=== PATIENT | male | born 1950 | race Caucasian/White ===

== ENCOUNTER 2023-12-10 09:40 | Outpatient (OUT) | payer MEDICARE, OTHER, SELFPAY ==
[2023-12-10 10:04] LABS: Basophils Absolute Auto 0.1 10^3/uL (0.0-0.1); Basophils Percent Auto 0.7 % (0.2-2.0); Eosinophils Absolute Auto 0.4 10^3/uL (0.0-0.7); Eosinophils Percent Auto 5.1 % (0.9-7.0); Hematocrit 38.1 % (42.0-54.0); Hemoglobin 12.7 g/dL (14.0-18.0); Immature Granulocytes Abs Auto 0.04 10^3/uL (0.00-0.03); Immature Granulocytes Pct Auto 0.5 % (0.0-0.5); Lymphocytes Absolute Auto 1.5 10^3/uL (1.2-3.8); Mean Corpuscular HGB Conc 33.3 g/dL (29.9-35.2); Mean Corpuscular Hemoglobin 30.6 pg (25.9-34.0); Mean Corpuscular Volume 91.8 fL (80.0-94.0); Mean Platelet Volume 9.8 fL (9.5-13.5); Monocytes Absolute Auto 0.7 10^3/uL (0.3-0.8); Neutrophils Absolute Auto 4.8 10^3/uL (1.4-6.5); Neutrophils Percent Auto 64.7 % (43.0-75.0); Platelet Count 229 10^3/uL (150-450); Red Blood Count 4.15 10^6/uL (4.70-6.10); White Blood Count 7.5 10^3/uL (4.0-11.0)
[2023-12-10 10:49] LABS: Alanine Aminotransferase 33 U/L (16-63); Albumin Level 3.3 g/dL (3.4-5.0); Alkaline Phosphatase 46 U/L (46-116); Anion Gap 13.7; Aspartate Amino Transferase 22 U/L (15-37); BUN Creatinine Ratio 11.4; Bilirubin Total 0.9 mg/dL (0.2-1.0); Calcium 9.5 mg/dL (8.5-10.1); Carbon Dioxide 30.1 mmol/L (21.0-32.0); Chloride 104 mmol/L (98-107); Estimated GFR (African America >60 (>=60 mL/min/1.73m^2); Estimated GFR (Non-African Ame 53 (>=60 mL/min/1.73m^2); Globulin 3.3 g/dL; Glucose 99 mg/dL (74-106); Potassium 3.8 mmol/L (3.5-5.1); Sodium 144 mmol/L (136-145); Total Protein 6.6 g/dL (6.4-8.2)
[2023-12-10 12:07] LABS: Prostate Specific Antigen Scrn 1.21 ng/mL (<=4.00)
== END 2023-12-10 09:41 | disposition home or self-care (01) ==
PROVIDERS: PCP Family Medicine; Visit Provider Family Medicine
DX: I10 Essential (primary) hypertension (principal); Z12.5 Encounter for screening for malignant neoplasm of prostate
CPT/HCPCS: 36415; 80053; 85025; G0103

== ENCOUNTER 2023-12-24 08:32 | Outpatient (OUT) | payer MEDICARE, SELFPAY ==
--- NOTE | 2023-12-24 08:40 | XR_ITS ---
The [address] [address] Patient Name: DENNY RUIZ MRN: [id number] date: 1950 Sex: M Assigned Patient Location: [facility] Current Patient Location: [facility] Accession/Order Number: [id number] Exam Date: 12/24/2023 08:45 Report Date: 12/24/2023 13:02 At the request of: ALTAF SELLERS Procedure: XR chest 2V PROCEDURE: XR chest 2V DATE: 12/24/2023 8:45 AM EST COMPARISONS: None. CLINICAL INDICATION: 73 years Male Screening FINDINGS: The cardiomediastinal silhouette and pulmonary vasculature are within normal limits. The lungs are clear. There is no evidence of pleural effusion or pneumothorax. There is evidence of mild lead thoracic degenerative spondylosis. There is also some upper thoracic kyphosis. XR/XR chest 2V IMPRESSION: Chest radiograph is essentially within normal limits. Thoracic spondylosis Electronically authenticated by: BELINDA MONTAGUE Date: 12/24/2023 13:02
--- OUTSIDE RECORDS SUMMARY | 2023-12-24 08:49 | XMS_ITS | CCD ---
Author Organization [facility] Care Team Providers Care Director Search Name Role Phone VERITO, DR MODESTO Escobar Attending Unavailable SELLERS, DR MODESTO Escobar Consulting Unavailable SELLERS, DR MODESTO Escobar Primary Care Unavailable SELLERS, DR MODESTO Escobar Admitting Unavailable Sellers, Modesto Davidson Primary Care Provider [phone] Sellers, Modesto Davidson Primary Care Provider [phone] Sellers DO, Modesto Davidson Primary Care Provider Sellers DO, Modesto Davidson Primary Care Provider ELVIRA GARRISON Attending Unavailabl e SELLERS, MODESTO DAVIDSON Primary Care Unavailab ELVIRA Crowell Referring Unavailabl e SELLERS, MODETSO DAVIDSON Primary Care Unavailab CLARISSE Cisse Attending Unavailable LONANCY Referring Unavailable SELLERS, MODESTO DAVIDSON Primary Care Unavailab NANCY Way Attending Unavailable SELLERS, MODESTO DAVIDSON Primary Care Unavailab CLARISSE Cisse Attending Unavailable SELLERS, MODESTO DAVIDSON Primary Care Unavailab le LONANCY Attending Unavailable Medications Current Medications Medication Drug Class(es) Dates Sig (Normalized) Sig (Original) aspirin 81 mg oral tablet (12 sources) Platelet Aggregation Inhibitor, Nonsteroidal Anti-inflammator y Drug Aspirin 81 mg ORAL T ab Take 81 mg by mouth. Active Comment on above: Take 81 mg by mouth. hydroCHLOROthiazide 25 mg oral tablet (12 sources) Thiazide Diuretic take 1 tablet by mouth once daily hydroCHLOROthiazide (HYDRODIURIL, ESIDRIX) 25 mg tablet Take 25 mg by mouth once daily. Active Comment on above: Take 25 mg by mouth once daily. losartan potassium 100 mg oral tablet (12 sources) Angiotensin 2 Receptor John take 1 tablet by mouth once daily losartan (COZAAR) 100 mg tablet Take 100 mg by mouth once daily. Active Comment on above: Take 100 mg by mouth once daily. multivitamin ORAL tablet (12 sources) take 1 tablet by mouth once daily multivitamin ORAL tablet Take 1 tablet by mouth once daily. Active take 1 tablet by mouth once taurus y multivitamin ORAL tablet Take 1 tablet by mouth once daily. 0 Active Comment on above: Take 1 tablet by jerzy th once daily. pantoprazole 40 mg delayed release oral tablet (12 sources) Proton Pump Inhibitor take 1 tablet by mouth once daily pantoprazole DR (PROTONIX) 40 mg tablet Take 40 mg by mouth once daily. Active Comment on above: Take 40 mg by mouth once daily. psyllium seed, with dextrose, (FIBER ORAL) (12 sources) psyllium seed, w ith dextrose, (FIBER ORAL) Take by mouth once daily. Active psyllium seed, w ith dextrose, (FIBER ORAL) Take by mouth once daily. 0 Active Comment on above: Take by mouth once d aily. simvastatin 40 mg oral tablet (12 sources) HMG-CoA Reductase Inhibitor take 1 tablet by mouth once daily at bedtime simvastatin (ZOCOR) 40 mg tablet Take 40 mg by mouth daily at bedtime. Active Comment on above: Take 40 mg by mouth daily at bedtime. ubiquinol 200 mg oral capsule (12 sources) take 200 mg by mouth once daily COQ10, UBIQUINOL, ORAL Take 200 mg by mouth once daily. Active Comment on above: Take 200 mg by mouth once daily. Completed/Discontinued Medications Medication Drug Class(es) Dates Sig (Normalized) Sig (Original) Carboxymethylcellulose (1 source) End: 01-05-20 CARBOXYMETHYLCELLULOSE SODIUM (RESTORE TEARS OPHTHALMIC) Use in eyes once daily. 01/04/2021 Discontinued (Course of therapy completed) 10 ml lidocaine hydrochloride 10 mg/ml injection (7 sources) Antiarrhythmi c, Amide Local Anesthetic Start: 09-18-19 End: 09-18-19 24 lidocaine (PF) 10 mg/mL (1 %) 4 mL injection (XYLOCAINE) Start: 06-08-2023 End: 06-08-2023 lidocaine (PF) 10 mg/mL (1 % ) 4 mL injection (XYLOCAINE) Start: 09-05-2022 End: 09-05-2022 lidocaine (PF) 10 mg/mL (1 % ) 4 mL injection (XYLOCAINE) Start: 01-24-2022 End: 01-24-2022 lidocaine (PF) 10 mg/mL (1 % ) 4 mL injection (XYLOCAINE) Start: 08-02-2021 End: 08-02-2021 lidocaine (PF) 10 mg/mL (1 % ) 4 mL injection (XYLOCAINE) Meperidine (2 sources) Opioid Agonist Start: 08-16-2023 End: 08-16-2023 meperidine (PF) injection (D EMEROL) Start: 08-16-2023 End: 08-16-2023 meperidine (PF) injection (D EMEROL) 5 ml midazolam 1 mg/ml injection (1 source) Benzodiazepine Start: 08-16-2023 End: 08-16-2023 midazolam (PF) injection (VERSED) 2 ml ondansetron 2 mg/ml injection (1 source) Serotonin-3 Receptor Antagonist Start: 08-16-2023 End: 08-16-2023 ondansetron (PF) injection (ZOFRAN) 1 ml triamcinolone acetonide 40 mg/ml injection (7 sources) Corticosteroid Start: 09-18-2023 End: 09-18-2023 triamcinolone acetonide 40 mg injection (KeNALog 40) Start: 06-08-2023 End: 06-08-2023 triamcinolone acetonide 40 m g injection (KeNALog 40) Start: 09-05-2022 End: 09-05-2022 triamcinolone acetonide 40 m g injection (KeNALog 40) Start: 01-24-2022 End: 01-24-2022 triamcinolone acetonide 40 m g injection (KeNALog 40) Start: 08-02-2021 End: 08-02-2021 triamcinolone acetonide 40 m g injection (KeNALog 40) ubidecarenone / vitamin E (1 source) End: 01-04-2021 Coenzyme [id number] E (COQ1 0 SG 100) 100-100 mg-unit ORAL Cap Take by mouth. 01/04/2021 Discontinued (Patient chooses alternative therapy) Problems Active Problems Problem Classification Problem Date Documented Da te Episodic/Chronic Disorders of lipid metabolism (1 source) Mixed hyperlipidemia; Translations: [MIXED HYPERLIPIDEMIA] Onset: 11-16-2020 Chronic Esophageal disorders (13 sources) Stricture of esophagus; Translations: [Esophageal obstruction] Onset: 03-10-2010 03-10-2010 Chronic Hypertension with complications and secondary hypertension (4 sources) Hypertensive chronic kidney disease with stage 1 through stage 4 chronic kidney disease, or unspecified chronic kidney disease; Translations: [HTN CKD W/STAGE 1-4 CKD/UNS CKD] Onset: 11-11-2020 Chronic Other gastrointestinal disorders (2 sources) Dysphagia; Translations: [Other dysphagia] Episodic Other gastrointestinal disorders (2 sources) Esophageal dysphagia; Translations: [Other dysphagia] 05-22-2023 Episodic Other gastrointestinal disorders (1 source) Other dysphagia; Translations: [Esophageal dysphagia] Onset: 08-16-2023 Episodic Other non-traumatic joint disorders (1 source) Other specific arthropathies, not elsewhere classified, right shoulder; Translations: [Rotator cuff tear arthropathy of right shoulder] Onset: 07-13-2020 Chronic Other screening for suspected conditions (not mental disorders or infectious disease) (2 sources) Encounter for screening, unspecified; Translations: [Encounter for screening for malignant neoplasm of prostate] Onset: 11-16-2020 Episodic Residual codes; unclassified (2 sources) Pain; Translations: [Pain, unspecified] 08-02-2021 Episodic Unclassified (1 source) CHRN KIDNEY DISEASE STG 3 UNSP; Translations: [CHRN KIDNEY DISEASE STG 3 UNSP] Onset: 11-16-2020 Past or Other Problems Problem Classification Problem Date Documented Da te Episodic/Chronic Other connective tissue disease (17 sources) Rotator cuff arthropathy of right shoulder; Translations: [Unspecified rotator cuff tear or rupture of right shoulder, not specified as traumatic] Onset: 07-13-2020 Episodic Other connective tissue disease (1 source) Unspecified rotator cuff tear or rupture of right shoulder, not specified as traumatic; Translations: [Rotator cuff tear arthropathy of right shoulder] Onset: 07-13-2020 Episodic Sprains and strains (12 sources) Sprain of shoulder rotator cuff; Translations: [Sprain of unspecified rotator cuff capsule, initial encounter] Onset: 05-28-2012 05-28-2012 Episodic Results Test Name Value Interpretation Reference Range Facility OV 09-18-2023 CNOV Office Visit (SPRTST ) CHASITY RUIZ ([id number]) 1950 M Date Time Provider Department 09/18/23 8:50 AM CLARISSE FORTUNE During your visit today, we recorded the following information about you: Clarisse Fortune PA-C 09/18/2023 8:54 AM Signed FOLLOW UP APPOINTMENT Chief Complaint:/Reason for Visit: Established patient; Scheduled follow up appointment for new or existing problem and/or post-surgical evaluation History of Present Illness: Chasity Ruiz follows up today for his right shoulder. He is here for repeat right shoulder injection. Continues to get moderate relief. ROS: Constitutional: patient denies any recent fever or significant change in weight Cardiovascular: patient denies any chest pain at rest Respiratory: patient denies any shortness of breath or cough Gastrointestinal: patient denies any current abdominal discomfort Integumentary: patient denies any recent skin changes Musculoskeletal: as noted in the HPI Neurologic: as noted in the HPI Endocrine: patient denies a current diagnosis of diabetes Hematologic/Lymphatic: patient denies any easily bleeding, any recent infection and denies any recent observable lymph node enlargement Psychologic: negative for any recent depression or anxiety issues PAST MEDICAL HISTORY No date: Hypertension No date: Tuberculosis Current Outpatient Medications: psyllium seed, with dextrose, (FIBER ORAL) hydroCHLOROthiazide (HYDRODIURIL, ESIDRIX) [address] (PROTONIX) 40 mg tablet simvastatin (ZOCOR) 40 mg tablet COQ10, UBIQUINOL, ORAL losartan (COZAAR) 100 mg tablet multivitamin ORAL tablet Aspirin 81 mg ORAL Tab Problem List: reviewed and updated. Physical Exam: Constitutional: No acute distress, pleasant Resp: Non-labored breathing Vascular: No cyanosis Skin: No rashes noted Focused Musculoskeletal exam: General: Ambulates well; no other joint abnormalities noted. Motor: 5/5 IO, FPL, OP, hand change release manager, biceps, triceps, deltoid Sensory: SILT ulnar/median/radial distributions bilat (C1-T1 intact) ROM: intact in all joints. Pulses: 2+ radial, ulnar; hands warm bilat, <2sec CR Compartments: soft and compressible Assessment: (M75.101, M12.811) Rotator cuff tear arthropathy of right shoulder (primary encounter diagnosis) Plan/Medical Decision Making:The nature of the problem and all indicated treatment options available were discussed in detail with the patient. Test(s)/Imaging/Referra l(s): None 2. Intervention: Continue conservative treatment and CSI 3. Follow-up: as needed All of Chasity Ruiz questions were answered today. He expressed a clear understanding of our discussion and is in agreement with the outlined treatment plan Clarisse Fortune PA-C Large Joint Arthro/Inj: R subacromial bursa Informed Consent Consent Obtained: Verbal [place] Protocol A moment to CARE was completed. SIGN IN Sign in communication not applicable due to emergent procedure. Personnel directly involved with the procedure wore the appropriate PPE. Special Equipment: N/A Patient/Surrogate Stated/Verified: Patient name, Date of , Relevant allergies and Intended procedure TIME OUT Intended patient and procedure match the source document(s). Consent documented and matches the intended procedure. Relevant labs, photos, and/or imaging studies have been reviewed. Correct side/site marked and visible. Medications required for procedure verified. No fire risk assessment and interventions applicable. No implant(s) inserted. 09/18/2023 8:54 AM The procedure site was prepped in the usual sterile fashion. Site: R subacromial bursa Medications: 40 mg triamcinolone acetonide 40 mg/mL Anesthetics: 4 mL lidocaine (PF) 10 mg/mL (1 %) Outcome: Tolerated well, no immediate complications Post-injection instructions were reviewed with the patient and the patient voiced understanding of these instructions. SIGN OUT All instruments, equipment, possible retained foreign bodies accounted for. Referring Provider: ELVIRA GARRISON [[id number]] Allergies As of Date: 09/18/2023 (No Known Allergies) Date Reviewed: 09/18/2023 Reviewed by: Emily Lama MA - Fully Assessed Reason for Visit: Established Patient [175] Primary Visit Diagnosis:Rotator cuff tear arthropathy of right shoulder [M75.101, M12.811] Order(s):Large Joint Arthro/Inj: R subacromial bursa [KNH641] Order #: [id number] [] lidocaine (PF) 10 mg/mL (1 %) 4 mL injection (XYLOCAINE)Disp: Rfl: [] triamcinolone acetonide 40 mg injection (KeNALog 40)Disp: Rfl: Prescriptions as of 09/18/2023 - psyllium seed, with dextrose, (FIBER ORAL) Take by mouth once daily. - hydroCHLOROthiazide (HYDRODIURIL, ESIDRIX) 25 mg tablet Take 25 mg by mouth once daily. - pantoprazole DR (PROTONIX) 40 mg tablet Take 40 mg by mout (more content not included)... Normal [facility] Large Joint Arthro/Inj: R honeycutt bacromial bursaon 09-18-2023 Clarisse Fortune P A-C 09/18/2023 8:54 AM Large Joint Arthro/Inj: R subacromial bursa Informed Consent Consent Obtained: Verbal [place] Protocol A moment to CARE was completed. SIGN IN Sign in communication not applicable due to emergent procedure. Personnel directly involved with the procedure wore the appropriate PPE. Special Equipment: N/A Patient/Surrogate Stated/Verified: Patient name, Date of , Relevant allergies and Intended procedure TIME OUT Intended patient and procedure match the source document(s). Consent documented and matches the intended procedure. Relevant labs, photos, and/or imaging studies have been reviewed. Correct side/site marked and visible. Medications required for procedure verified. No fire risk assessment and interventions applicable. No implant(s) inserted. 09/18/2023 8:54 AM The procedure site was prepped in the usual sterile fashion. Site: R subacromial bursa Medications: 40 mg triamcinolone acetonide 40 mg/mL Anesthetics: 4 mL lidocaine (PF) 10 mg/mL (1 %) Outcome: Tolerated well, no immediate complications Post-injection instructions were reviewed with the patient and the patient voiced understanding of these instructions. SIGN OUT All instruments, equipment, possible retained foreign bodies accounted for. [facility] EGD Study observation Heber mariano 08-16-2023 A31 Gastrointestinal Endoscopy Patient Name: Chasity Ruiz Procedure Date: 08/16/2023 4:08 PM Date of : 1950 Admit Type: Outpatient Age: 73 Room: A3 PROC 5 Gender: Male Note Status: Finalized Attending MD: Nancy Maldonado MD, [id number] Procedure: Upper GI endoscopy Indications: Dysphagia Providers: Nancy Maldonado MD Referring Physician: Nancy Maldonado MD (Referring MD) Medicines: Meperidine 75 mg IV, Midazolam 4 mg IV, Benzocaine spray Complications: No immediate complications. Requesting Provider: Procedure: Pre-Anesthesia Assessment: - ASA Grade Assessment: II - A patient with mild systemic disease. After obtaining informed consent, the endoscope was passed under direct vision. Throughout the procedure, the patient's blood pressure, pulse, and oxygen saturations were monitored continuously. The Endoscope was introduced through the mouth, and advanced to the second part of duodenum. The upper GI endoscopy was accomplished without difficulty. The patient tolerated the procedure well. Moderate Sedation: The administration of moderate sedation was initiated at 16:29 PM. Moderate (conscious) sedation was administered by the nurse and supervised by the endoscopist. The patient's oxygen saturation, heart rate, blood pressure and response to care were monitored. Findings: One benign-appearing, intrinsic severe (stenosis; an endoscope cannot pass) stenosis was found 39 cm from the incisors. This stenosis measured 8 mm (inner diameter) x less than one cm (in length). The stenosis was traversed after dilation. A TTS dilator was passed through the scope. Dilation with a 12-13.5-15 mm x 5.5 cm CRE balloon dilator was performed to 15 mm. The dilation site was examined following endoscope reinsertion and showed moderate mucosal disruption, moderate improvement in luminal narrowing and no perforation. The entire examined stomach was normal. The in the duodenum was normal. Impression: - Benign-appearing esophageal stenosis. Dilated. - Normal stomach. - Normal. - No specimens collected. Estimated Blood Loss: Estimated blood loss: none. Recommendation: - Discharge patient to home. Procedure Code(s): --- Professional --- 91364, Esophagogastroduodenosc opy, flexible, transoral; with transendoscopic balloon dilation of esophagus (less than 30 mm diameter) CPT copyright 2020 [employer]. All rights reserved. The codes documented in this report are preliminary and upon movement assembly final inspector review may be revised to meet current compliance requirements. Attending Participation: I personally performed the entire procedure. I was present and participated during the entire procedure, including non-marte portions, and during the administration and monitoring of Moderate Sedation. Scope In: 4:33:12 PM Scope Out: 4:39:24 PM MD Nancy Avalos MD 08/16/2023 4:43:57 PM This report has been signed electronically by Nancy Maldonado MD Number of Addenda: 0 Note Initiated On: 08/16/2023 4:08 PM [facility] Radiology Study observation (narrative) [facility] NURSING PROGon 08-16-2023 NURSING PROG HNO ID: [id number] Author: SAMMI VERMA RN Service: ? Author Type: Registered Nurse Type: Nursing Progress Note Filed: 08/16/2023 16:48 Note Text: AMBULATORY PATIENT EDUCATION NOTE TOPIC: GI PROCEDURES: Esophagogastroduodenosc opy(EGD) for control of bleeding,dilation(any means),imaging,tube placement READINESS TO LEARN INSTRUCTION PROVIDED TO: Patient, readness to learn accessed prior to procedure and Family member COGNITIVE ABILITY: Alert and oriented PTED MOTIVATION TO LEARN: Interested FAMILY SUPPORT: High - Very involved in pt care IPATIENT LEARNS BEST BY: Individual Instruction Written Instruction - Hand-outs Verbal Instruction FACTORS AFFECTING LEARNING: None PHYSICAL LIMITATIONS AFFECTING LEARNING: None LEARNING RESPONSE METHOD OF INSTRUCTION: Individual instruction PATIENT / FAMILY RESPONSE: Verbalizes understanding of: WORSENING CONDITION-Signs and symptoms of a worsening condition that warrant a call to the physician FOLLOW-UP PLAN: Patient instructed to call with any further issues Recommend - Recommend continued instruction and follow up as directed Contact information given. SUPPLEMENTAL MATERIAL: Procedure Discharge Instructions REFERRAL (RECOMMENDATION): None Electronically Signed By: Sammi Verma RN Normal [facility] NURSING PROG HNO ID: [id number] Author: DARLEEN HEREDIA RN Service: ? Author Type: Registered Nurse Type: Nursing Progress Note Filed: 08/16/2023 16:11 Note Text: PRE OP LEARNING ASSESSMENT PROCEDURE/SURGERY: GI PROCEDURES: EGD READINESS TO LEARN COGNITIVE ABILITY: Alert and oriented MOTIVATION TO LEARN: Interested FAMILY SUPPORT: Unable to assess - Family not present PATIENT LEARNS BEST BY: Individual Instruction FACTORS AFFECTING LEARNING: None PHYSICAL LIMITATIONS AFFECTING LEARNING: None Electronically Signed By: Darleen Heredia RN In Department: GASTROENTEROLOGY Normal [facility] Upper GI endoscopyon 024 Upper GI endoscopy A31 Gastrointestinal Endoscopy Patient Name: Chasity Ruiz Procedure Date: 08/16/2023 4:08 PM Date of : 1950 Admit Type: Outpatient Age: 73 Room: [place] [address] Gender: Male Note Status: Finalized Attending MD: Nancy Maldonado MD, [id number] Procedure: Upper GI endoscopy Indications: Dysphagia Providers: Nancy Maldonado MD Referring Physician: Nancy Maldonado MD (Referring MD) Medicines: Meperidine 75 mg IV, Midazolam 4 mg IV, Benzocaine spray Complications: No immediate complications. Requesting Provider: Procedure: Pre-Anesthesia Assessment: - ASA Grade Assessment: II - A patient with mild systemic disease. After obtaining informed consent, the endoscope was passed under direct vision. Throughout the procedure, the patient's blood pressure, pulse, and oxygen saturations were monitored continuously. The Endoscope was introduced through the mouth, and advanced to the second part of duodenum. The upper GI endoscopy was accomplished without difficulty. The patient tolerated the procedure well. Moderate Sedation: The administration of moderate sedation was initiated at 16:29 PM. Moderate (conscious) sedation was administered by the nurse and supervised by the endoscopist. The patient's oxygen saturation, heart rate, blood pressure and response to care were monitored. Findings: One benign-appearing, intrinsic severe (stenosis; an endoscope cannot pass) stenosis was found 39 cm from the incisors. This stenosis measured 8 mm (inner diameter) x less than one cm (in length). The stenosis was traversed after dilation. A TTS dilator was passed through the scope. Dilation with a 12-13.5-15 mm x 5.5 cm CRE balloon dilator was performed to 15 mm. The dilation site was examined following endoscope reinsertion and showed moderate mucosal disruption, moderate improvement in luminal narrowing and no perforation. The entire examined stomach was normal. The in the duodenum was normal. Impression: - Benign-appearing esophageal stenosis. Dilated. - Normal stomach. - Normal. - No specimens collected. Estimated Blood Loss: Estimated blood loss: none. Recommendation: - Discharge patient to home. Procedure Code(s): --- Professional --- 35248, Esophagogastroduodenosc opy, flexible, transoral; with transendoscopic balloon dilation of esophagus (less than 30 mm diameter) CPT copyright 2020 [employer]. All rights reserved. The codes documented in this report are preliminary and upon movement assembly final inspector review may be revised to meet current compliance requirements. Attending Participation: I personally performed the entire procedure. I was present and participated during the entire procedure, including non-marte portions, and during the administration and monitoring of Moderate Sedation. Scope In: 4:33:12 PM Scope Out: 4:39:24 PM MD Nancy Avalos MD 08/16/2023 4:43:57 PM This report has been signed electronically by Nancy Maldonado MD Number of Addenda: 0 Note Initiated On: 08/16/2023 4:08 PM Normal [facility] CNOVon 06-08-2023 CNOV Office Visit (SPRTST ) CHASITY RUIZ ([id number]) 1950 M Date Time Provider Department 06/08/23 9:10 AM CLARISSE FORTUNE During your visit today, we recorded the following information about you: Clarisse Fortune PA-C 06/08/2023 9:05 AM Signed FOLLOW UP APPOINTMENT Chief Complaint:/Reason for Visit: Established patient; Scheduled follow up appointment for new or existing problem and/or post-surgical evaluation History of Present Illness: Chasity Ruiz follows up today for his right shoulder. He is here for repeat cortisone injection. Last injection lasted about 4 months. ROS: Constitutional: patient denies any recent fever or significant change in weight Cardiovascular: patient denies any chest pain at rest Respiratory: patient denies any shortness of breath or cough Gastrointestinal: patient denies any current abdominal discomfort Integumentary: patient denies any recent skin changes Musculoskeletal: as noted in the HPI Neurologic: as noted in the HPI Endocrine: patient denies a current diagnosis of diabetes Hematologic/Lymphatic: patient denies any easily bleeding, any recent infection and denies any recent observable lymph node enlargement Psychologic: negative for any recent depression or anxiety issues PAST MEDICAL HISTORY Diagnosis Date Hypertension Tuberculosis Current Outpatient Medications: psyllium seed, with dextrose, (FIBER ORAL) hydroCHLOROthiazide (HYDRODIURIL, ESIDRIX) [address] (PROTONIX) 40 mg tablet simvastatin (ZOCOR) 40 mg tablet COQ10, UBIQUINOL, ORAL losartan (COZAAR) 100 mg tablet multivitamin ORAL tablet Aspirin 81 mg ORAL Tab Problem List: reviewed and updated. Physical Exam: Constitutional: No acute distress, pleasant Resp: Non-labored breathing Vascular: No cyanosis Skin: No rashes noted Focused Musculoskeletal exam: General: Ambulates well; no other joint abnormalities noted. Motor: 5/5 IO, FPL, OP, hand change release manager, biceps, triceps, deltoid Sensory: SILT ulnar/median/radial distributions bilat (C1-T1 intact) ROM: intact in all joints. Pulses: 2+ radial, ulnar; hands warm bilat, <2sec CR Compartments: soft and compressible Assessment: (M75.101, M12.811) Rotator cuff tear arthropathy of right shoulder (primary encounter diagnosis) Plan/Medical Decision Making:The nature of the problem and all indicated treatment options available were discussed in detail with the patient. Test(s)/Imaging/Referra l(s): None 2. Intervention: Continue conservative treatment and CSI 3. Follow-up: as needed All of Chasity Ruiz questions were answered today. He expressed a clear understanding of our discussion and is in agreement with the outlined treatment plan Clarisse Fortune PA-C Large Joint Arthro/Inj: R subacromial bursa Informed Consent Consent Obtained: Verbal [place] Protocol A moment to CARE was completed. SIGN IN Sign in communication not applicable due to emergent procedure. Personnel directly involved with the procedure wore the appropriate PPE. Special Equipment: N/A Patient/Surrogate Stated/Verified: Patient name, Date of , Relevant allergies and Intended procedure TIME OUT Intended patient and procedure match the source document(s). Consent documented and matches the intended procedure. Relevant labs, photos, and/or imaging studies have been reviewed. Correct side/site marked and visible. Medications required for procedure verified. No fire risk assessment and interventions applicable. No implant(s) inserted. 06/08/2023 8:58 AM The procedure site was prepped in the usual sterile fashion. Site: R subacromial bursa Medications: 40 mg triamcinolone acetonide 40 mg/mL Anesthetics: 4 mL lidocaine (PF) 10 mg/mL (1 %) Outcome: Tolerated well, no immediate complications Post-injection instructions were reviewed with the patient and the patient voiced understanding of these instructions. SIGN OUT All instruments, equipment, possible retained foreign bodies accounted for. Allergies As of Date: 06/08/2023 (Not on File) Date Reviewed: 06/08/2023 Reviewed by: Lluvia Salazar RN - Fully Assessed Reason for Visit: Established Patient [175] Pain [78] Primary Visit Diagnosis:Rotator cuff tear arthropathy of right shoulder [M75.101, M12.811] Order(s):Large Joint Arthro/Inj: R subacromial bursa [JBY552] Order #: [id number] [] lidocaine (PF) 10 mg/mL (1 %) 4 mL injection (XYLOCAINE)Disp: Rfl: [] triamcinolone acetonide 40 mg injection (KeNALog 40)Disp: Rfl: Prescriptions as of 06/08/2023 - psyllium seed, with dextrose, (FIBER ORAL) Take by mouth once daily. - hydroCHLOROthiazide (HYDRODIURIL, ESIDRIX) 25 mg tablet Take 25 mg by mouth once daily. - pantoprazole DR (PROTONIX) 40 mg tablet Take 40 mg by mouth once daily. - simvastatin (ZOCOR) 40 mg tablet (more content not included)... Normal [facility] Large Joint Arthro/Inj: R honeycutt bacromial bursaon 06-08-2023 Clarisse Fortune P A-C 06/08/2023 9:05 AM Large Joint Arthro/Inj: R subacromial bursa Informed Consent Consent Obtained: Verbal [place] Protocol A moment to CARE was completed. SIGN IN Sign in communication not applicable due to emergent procedure. Personnel directly involved with the procedure wore the appropriate PPE. Special Equipment: N/A Patient/Surrogate Stated/Verified: Patient name, Date of , Relevant allergies and Intended procedure TIME OUT Intended patient and procedure match the source document(s). Consent documented and matches the intended procedure. Relevant labs, photos, and/or imaging studies have been reviewed. Correct side/site marked and visible. Medications required for procedure verified. No fire risk assessment and interventions applicable. No implant(s) inserted. 06/08/2023 8:58 AM The procedure site was prepped in the usual sterile fashion. Site: R subacromial bursa Medications: 40 mg triamcinolone acetonide 40 mg/mL Anesthetics: 4 mL lidocaine (PF) 10 mg/mL (1 %) Outcome: Tolerated well, no immediate complications Post-injection instructions were reviewed with the patient and the patient voiced understanding of these instructions. SIGN OUT All instruments, equipment, possible retained foreign bodies accounted for. [facility] CNOVon 02-13-2023 CNOV Office Visit (SPRTST ) CHASITY RUIZ ([id number]) 1950 M Date Time Provider Department 02/13/23 9:00 AM ELVIRA GARRISON SPRTST During your visit today, we recorded the following information about you: Tomy Perez MD 02/13/2023 9:49 AM Signed FOLLOW UP APPOINTMENT Chief Complaint:/Reason for Visit: Established patient; Scheduled follow up appointment for new or existing problem and/or post-surgical evaluation History of Present Illness: Chasity Ruiz follows up today for his right shoulder. Last injection was in September. Has been getting injections and gets about 4 months of relief. 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 ROS: Constitutional: patient denies any recent fever or significant change in weight Cardiovascular: patient denies any chest pain at rest Respiratory: patient denies any shortness of breath or cough Gastrointestinal: patient denies any current abdominal discomfort Integumentary: patient denies any recent skin changes Musculoskeletal: as noted in the HPI Neurologic: as noted in the HPI Endocrine: patient denies a current diagnosis of diabetes Hematologic/Lymphatic: patient denies any easily bleeding, any recent infection and denies any recent observable lymph node enlargement Psychologic: negative for any recent depression or anxiety issues PAST MEDICAL HISTORY Diagnosis Date Hypertension Tuberculosis Current Outpatient Medications: psyllium seed, with dextrose, (FIBER ORAL) hydroCHLOROthiazide (HYDRODIURIL, ESIDRIX) [address] (PROTONIX) 40 mg tablet simvastatin (ZOCOR) 40 mg tablet COQ10, UBIQUINOL, ORAL losartan (COZAAR) 100 mg tablet multivitamin ORAL tablet Aspirin 81 mg ORAL Tab Problem List: reviewed and updated. Physical Exam: Constitutional: No acute distress, pleasant Resp: Non-labored breathing Vascular: No cyanosis Skin: No rashes noted Focused Musculoskeletal exam: General: Ambulates well; no other joint abnormalities noted. Motor: 5/5 IO, FPL, OP, hand change release manager, biceps, triceps, deltoid Sensory: SILT ulnar/median/radial distributions bilat (C1-T1 intact) ROM: intact in all joints. Pulses: 2+ radial, ulnar; hands warm bilat, <2sec CR Compartments: soft and compressible He maintains functional motion and strength of the shoulders Assessment: No diagnosis found. Plan/Medical Decision Making:The nature of the problem and all indicated treatment options available were discussed in detail with the patient. Test(s)/Imaging/Referra l(s): None 2. Intervention: CSI today 3. Follow-up: As needed for injection Large Joint Arthro/Inj: R subacromial bursa Informed Consent Consent Obtained: Verbal [place] Protocol SIGN IN TIME OUT 02/13/2023 9:19 AM The procedure site was prepped in the usual sterile fashion. Site: R subacromial bursa Medications: 40 mg triamcinolone acetonide 40 mg/mL Anesthetics: 4 mL lidocaine (PF) 10 mg/mL (1 %) Outcome: Tolerated well, no immediate complications Post-injection instructions were reviewed with the patient and the patient voiced understanding of these instructions. All of Chasity Ruiz questions were answered today. He expressed a clear understanding of our discussion and is in agreement with the outlined treatment plan Elvira Garrison MD CC: Elvira Garrison MD 02/13/2023 9:49 AM Signed Assessment/Primary Diagnosis: (M75.101, M12.811) Rotator cuff tear arthropathy of right shoulder (primary encounter diagnosis) Fellow/resident history and physical examination reviewed and confirmed by the attending physician. The attending physician obtained additional history and performed focused physical examination. All imaging and laboratory studies were reviewed by the attending physician with fellow/resident and the patient. Treatment care plan discussed with the fellow/resident and completely explained to the patient. The attending physician was present for and supervised any injections. All of the patient's questions were answered by the attending physician. Referring Provider: SELF [200] Allergies As of Date: 02/13/2023 (Not on File) Date Reviewed: 02/13/2023 Reviewed by: Lluvia Salazar RN - Fully Assessed Reason for Visit: Injections [199] Pain [78] Established Patient [175] Primary Visit Diagnosis:Rotator cuff tear arthropathy of right shoulder [M75.101, M12.811] Order(s):Large Joint Arthro/Inj: R subacromial bursa [OXY129] Order #: [id number] [] lidocaine (PF) 10 mg/mL (1 %) 4 mL injection (XYLOCAINE)Disp: Rfl: [] triamcinolone acetonide 40 mg injection (KeNALog 40)Disp: Rfl: Prescriptions as of 02/13/2023 - psyllium seed, with dextrose, (FIBER ORAL) Take by mouth once daily. - hydroCHLOROthiazide (HYDRODIURIL, ESIDRIX) 25 mg tablet Take 25 mg by mouth once da (more content not included)... Normal [facility] EGD - THERAPEUTIC, EUS, OR T UBE INTERVENTIONSon 03-09-2022 [facility] XR Shoulder - right 3 Viewso n 08-02-2021 IMPRESSION: Postoperative and degenerative changes of the right shoulder, similar to prior. Suspicion of rotator cuff tear. Thoracic spine marked degenerative changes and mild dextroscoliosis. Supervisor [employer]: [employer] Transcribe Date/Time: Aug 02 2021 9:32A Dictated by : PHILLIP MACHUCA MD This examination was interpreted and the report reviewed and electronically signed by: PHILLIP MACHUCA MD on Aug 02 2021 9:35AM EST [facility]_DO_NOT_US E_DIVISION OF RADIOLOGY * * *Final Report* * * DATE OF EXAM: Aug 02 2021 9:06AM STX 5253 - XR SHLDR >/=3V AP/JOSE G AP/OTHR RT / PROCEDURE REASON: Pain * * * * Physician Interpretation * * * * HISTORY: Pain . RIGHT SHOULDER PAIN, NO KNOWN INJURY TECHNIQUE: XR SHLDR >/=3V AP/JOSE G AP/OTHR RT Laterality: RIGHT Number of different views (projections): 3 COMPARISON: 07/13/2020 RESULT: Again seen are postoperative changes with two metallic suture anchors overlying the greater tuberosity of the humerus. Mild glenohumeral joint space narrowing and osteophytes, similar to prior. Narrowing of the acromiohumeral interval suspicious for rotator cuff tear. Widening of the acromioclavicular joint space probably related to postoperative changes of distal clavicular resection. Small osteophytes about the acromium and distal clavicle. Ovoid ossifications measuring up to 1.6 cm overlying the proximal humerus suspicious for loose bodies some of which may be within the biceps tendon sheath. Soft tissues about the right shoulder otherwise unremarkable. Mild thoracic scoliosis convex to the right, and marked multilevel thoracic spine degenerative changes. [facility]_NOT_US E_DIVISION OF RADIOLOGY Provider, [facility] - 08/02/2021 * * *Final Report* * * DATE OF EXAM: Aug 02 2021 9:06AM STX 5253 - XR SHLDR >/=3V AP/JOSE G AP/OTHR RT / PROCEDURE REASON: Pain * * * * Physician Interpretation * * * * HISTORY: Pain . RIGHT SHOULDER PAIN, NO KNOWN INJURY TECHNIQUE: XR SHLDR >/=3V AP/JOSE G AP/OTHR RT Laterality: RIGHT Number of different views (projections): 3 COMPARISON: 07/13/2020 RESULT: Again seen are postoperative changes with two metallic suture anchors overlying the greater tuberosity of the humerus. Mild glenohumeral joint space narrowing and osteophytes, similar to prior. Narrowing of the acromiohumeral interval suspicious for rotator cuff tear. Widening of the acromioclavicular joint space probably related to postoperative changes of distal clavicular resection. Small osteophytes about the acromium and distal clavicle. Ovoid ossifications measuring up to 1.6 cm overlying the proximal humerus suspicious for loose bodies some of which may be within the biceps tendon sheath. Soft tissues about the right shoulder otherwise unremarkable. Mild thoracic scoliosis convex to the right, and marked multilevel thoracic spine degenerative changes. IMPRESSION IMPRESSION: Postoperative and degenerative changes of the right shoulder, similar to prior. Suspicion of rotator cuff tear. Thoracic spine marked degenerative changes and mild dextroscoliosis. Supervisor [employer]: [employer] Transcribe Date/Time: Aug 02 2021 9:32A Dictated by : PHILLIP MACHUCA MD This examination was interpreted and the report reviewed and electronically signed by: PHILLIP MACHUCA MD on Aug 02 2021 9:35AM EST [facility] Radiology Study observation (narrative) [facility] XR Shoulder - right 3 ViewsO rdered By: Ccf Provider on 08-02-2021 [facility] CBC AUTO DIFFon 11-11-2020 BASO # 0.1 103/ul Normal 0.0-0.1 [facility] Comment on above: Performed By: #### C BC #### [facility] [address] [place] [address] Dr. Brett Shea Basophils/100 WBC (Bld) 0.9 % Normal 0.2-2.0 [facility] Comment on above: Performed By: #### C BC #### [facility] [address] [place] [address] Dr. Brett Shea EO # 0.3 103/ul Normal 0.0-0.[address] [facility] Comment on above: Performed By: #### C BC #### [facility] [address] [place] [address] Dr. Brett Shea Eosinophils/100 WBC (Bld) 4.6 % Normal 0.9-7.[address] [facility] Comment on above: Performed By: #### C BC #### [facility] [address] [place] [address] Dr. Brett Shea Erythrocyte distribution width (RBC) [Ratio] 12.4 % Normal 11.0-15.0 [facility] Comment on above: Performed By: #### C BC #### [facility] [address] [place] [address] Dr. Brett Shea Hematocrit (Bld) [Volume fraction] 39.2 % Critically low 42.0-54.0 [facility] Comment on above: Performed By: #### C BC #### [facility] [address] [place] [address] Dr. Brett Shea Hemoglobin (Bld) [Mass/Vol] 12.8 g/dL Critically low 14.0-18.0 [facility] Comment on above: Performed By: #### C BC #### [facility] [address] [place] [address] Dr. Brett Shea IG # 0.02 10e3/ul Normal 0.00-0.03 [facility] Comment on above: Performed By: #### C BC #### [facility] [address] [place] [address] Dr. Brett Shea IG % 0.3 % Normal 0.0-0.5 [facility] Comment on above: Performed By: #### C BC #### [facility] [address] [place] [address] Dr. Bertt Shea LYMPH # 1.7 103/ul Normal 1.2-3.8 [facility] Comment on above: Performed By: #### C BC #### [facility] [address] [place] [address] Dr. Brett Shea Lymphocytes/100 WBC (Bld) 22.1 % Normal 20.5-60.0 [facility] Comment on above: Performed By: #### C BC #### [facility] [address] [place] [address] Dr. Brett Shea MANUAL DIFF REQ NO Normal [facility] Comment on above: Performed By: #### C BC #### [facility] [address] [place] [address] Dr. Brett Shea MCH (RBC) [Entitic mass] 29.8 pg Normal 25.9-34.0 [facility] Comment on above: Performed By: #### C BC #### [facility] [address] [place] [address] Dr. Brett Shea MCHC (RBC) [Mass/Vol] 32.7 g/dL Normal 29.9-35.2 [facility] Comment on above: Performed By: #### C BC #### [facility] [address] [address] [address] Brett Shea MCV (RBC) [Entitic vol] 91.2 fL Normal 80.0-94.0 [facility] Comment on above: Performed By: #### C BC #### [facility] [address] [address] [address] Brett Shea MONO # 0.7 103/ul Normal 0.3-0.8 [facility] Comment on above: Performed By: #### C BC #### [facility] [address] [place] [address] Dr. Brett Shea Monocytes/100 WBC (Bld) 9.9 % Normal 1.7-12.0 [facility] Comment on above: Performed By: #### C BC #### [facility] [address] [place] [address] Dr. Brett Shea NEUT # 4.6 103/ul Normal 1.4-6.5 [facility] Comment on above: Performed By: #### C BC #### [facility] [address] [place] [address] Dr. Brett Shea Neutrophils/100 WBC (Bld) 62.2 % Normal 43.0-75.0 [facility] Comment on above: Performed By: #### C BC #### [facility] [address] [address] [address] Brett Shea Platelet mean volume (Bld) [Entitic vol] 9.7 fL Normal 9.5-13.5 [facility] Comment on above: Performed By: #### C BC #### [facility] [address] [place] [address] Dr. Brett Shea PLT 265 103/ul Normal 150-[address] [facility] Comment on above: Performed By: #### C BC #### [facility] [address] [place] [address] Dr. Brett Shea RBC 4.30 106/ul Critically low 4.70-6.10 [facility] Comment on above: Performed By: #### C BC #### [facility] [address] [address] [address] Brett Shea WBC 7.5 103/ul Normal 4.0-11.0 [facility] Comment on above: Performed By: #### C BC #### [facility] [address] [address] [address] Brett Shea LIPID PROFILEon 11-11-2020 CHOL-HDL RATIO NORM SEE BELOW Normal [facility] Comment on above: Result Comment: 3.3 - 4.4 LOW RISK 4.4 - 7.1 AVERAGE RISK 7.1 - 11.0 MODERATE RISK >11.0 HIGH RISK Performed By: #### L IPID, CMP #### [facility] [address] [place] [address] Dr. Brett Shea Cholesterol [Mass/Vol] 132 mg/dL Normal <=200 [facility] Comment on above: Performed By: #### L IPID, CMP #### [facility] [address] [place] [address] Dr. Brett Shea Cholesterol in HDL [Mass/Vol] 36 mg/dL Normal [facility] Comment on above: Performed By: #### L IPID, CMP #### [facility] [address] [place] [address] Dr. Brett Shea Cholesterol in LDL [Mass/Vol] 67.8 mg/dL Normal [facility] Comment on above: Performed By: #### L IPID, CMP #### [facility] [address] [address] [address] Brett Shea Cholesterol.total/Ch olesterol in HDL [Mass ratio] 3.7 {ratio} Normal [facility] Comment on above: Performed By: #### L IPID, CMP #### [facility] [address] [place] [address] Dr. Brett Shea HDL NORMAL > or = 60 mg/dl - LO W CARDIOVASCULAR RISK <40 mg/dl - HIGH CARDIOVASCULAR RISK Normal [facility] Comment on above: Performed By: #### L IPID, CMP #### [facility] [address] [address] [address] Brett Shea LDL CALC NORMAL SEE BELOW Normal [facility] Comment on above: Result Comment: <100 mg/dl OPTIMAL 100 - 129 mg/dl NEAR OR ABOVE OPTIMAL 130 - 159 mg/dl BORDERLINE HIGH 160 - 189 mg/dl HIGH >190 mg/dl VERY HIGH Performed By: #### L IPID, CMP #### [facility] [address] [address] [address] Brett Shea Triglyceride [Mass/Vol] 141 mg/dL Normal <=150 [facility] Comment on above: Performed By: #### L IPID, CMP #### [facility] [address] [address] [address] Brett Shea VLDL CALC 28.2 mg/dL Normal [facility] Comment on above: Performed By: #### L IPID, CMP #### [facility] [address] [place] [address] Dr. Brett Shea PROF 14(COMP METB)on 021 Albumin [Mass/Vol] 4.1 g/dL Normal 3.5-5.0 [facility] Comment on above: Performed By: #### L IPID, CMP #### [facility] [address] [address] [address] Brett Shea Albumin/Globulin [Mass ratio] 1.4 {ratio} Normal [facility] Comment on above: Performed By: #### L IPID, CMP #### [facility] [address] [address] [address] Brett Shea ALP [Catalytic activity/Vol] 41 U/L Normal 38-[address] [facility] Comment on above: Performed By: #### L IPID, CMP #### [facility] [address] [address] [address] Brett Shea ALT [Catalytic activity/Vol] 29 U/L Normal 21-72 [facility] Comment on above: Performed By: #### L IPID, CMP #### [facility] [address] [place] [address] Dr. Brett Shea Anion gap [Moles/Vol] 9.9 mmol/L Normal [facility] Comment on above: Performed By: #### L IPID, CMP #### [facility] [address] [address] [address] Brett Shea AST [Catalytic activity/Vol] 22 U/L Normal 17-59 [facility] Comment on above: Performed By: #### L IPID, CMP #### [facility] [address] [place] [address] Dr. Brett Shea Bilirubin [Mass/Vol] 0.8 mg/dL Normal 0.2-1.3 [facility] Comment on above: Performed By: #### L IPID, CMP #### [facility] [address] [place] [address] Dr. Brett Shea Calcium [Mass/Vol] 9.3 mg/dL Normal 8.4-10.2 [facility] Comment on above: Performed By: #### L IPID, CMP #### [facility] [address] [place] [address] Dr. Brett Shea Chloride [Moles/Vol] 103 mmol/L Normal 98-107 [facility] Comment on above: Performed By: #### L IPID, CMP #### [facility] [address] [place] [address] Dr. Brett Shea CO2 [Moles/Vol] 31.0 mmol/L Critically high 22.0-30.0 [facility] Comment on above: Performed By: #### L IPID, CMP #### [facility] [address] [place] [address] Dr. Brett Shea Creatinine [Mass/Vol] 1.28 mg/dL Critically high 0.66-1.25 [facility] Comment on above: Performed By: #### L IPID, CMP #### [facility] [address] [place] [address] Dr. Brett Shea EGFR-AF SLOVENIAN >60 Normal >=60 [facility] Comment on above: Performed By: #### L IPID, CMP #### [facility] [address] [place] [address] Dr. Brett Shea EGFR-NON AF SLOVENIAN 56 mL/min/1.73m2 Critically low >=[address] [facility] Comment on above: Performed By: #### L IPID, CMP #### [facility] [address] [place] [address] Dr. Brett Shea Globulin (S) [Mass/Vol] 3.0 g/dL Normal [facility] Comment on above: Performed By: #### L IPID, CMP #### [facility] [address] [place] [address] Dr. Brett Shea Glucose [Mass/Vol] 96 mg/dL Normal 74-106 [facility] Comment on above: Performed By: #### L IPID, CMP #### [facility] [address] [place] [address] Dr. Brett Shea Potassium [Moles/Vol] 3.9 mmol/L Normal 3.4-5.0 [facility] Comment on above: Performed By: #### L IPID, CMP #### [facility] [address] [place] [address] Dr. Brett Shea Protein [Mass/Vol] 7.1 g/dL Normal 6.1-8.2 [facility] Comment on above: Performed By: #### L IPID, CMP #### [facility] [address] [place] [address] Dr. Brett Shea Sodium [Moles/Vol] 140 mmol/L Normal 137-145 [facility] Comment on above: Performed By: #### L IPID, CMP #### [facility] [address] [place] [address] Dr. Brett Shea Urea nitrogen [Mass/Vol] 15.0 mg/dL Normal 9.0-20.[address] [facility] Comment on above: Performed By: #### L IPID, CMP #### [facility] [address] [place] [address] Dr. Brett Shea Urea nitrogen/Creatinine [Mass ratio] 11.7 mg/mg Normal [facility] Comment on above: Performed By: #### L IPID, CMP #### [facility] [address] [place] [address] Dr. Brett Shea XR Shoulder - right 3 Viewso n 07-13-2020 IMPRESSION: 1. 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 Supervisor [employer]: MALIK Transcribe Date/Time: Jul 13 2020 1:06P Dictated by : PATRICIA GOMES MD This examination was interpreted and the report reviewed and electronically signed by: PATRICIA GOMES MD on Jul 13 2020 1:10PM [facility] DIVISION OF RADIOLOGY * * *Final Report* * * DATE OF EXAM: Jul 13 2020 11:31AM STX 5253 - XR SHLDR >/=3V AP/JOSE G AP/OTHR RT / PROCEDURE REASON: Pain * * * * Physician Interpretation * * * * Right shoulder x-rays: HISTORY: Pain TECHNIQUE: 3 views are reviewed. COMPARISON: 05/28/2012 FINDINGS: There has been no significant interval change. Suture anchors are demonstrated within the greater tuberosity consistent with prior rotator cuff repair. Degenerative arthrosis is present at the glenohumeral joint with osteophyte formation along the inferior humeral head. Moderate osteophyte formation is also present at the acromioclavicular joint. DIVISION OF RADIOLOGY Provider, [facility] - 07/13/2020 * * *Final Report* * * DATE OF EXAM: Jul 13 2020 11:31AM STX 5253 - XR SHLDR >/=3V AP/JOSE G AP/OTHR RT / PROCEDURE REASON: Pain * * * * Physician Interpretation * * * * Right shoulder x-rays: HISTORY: Pain TECHNIQUE: 3 views are reviewed. COMPARISON: 05/28/2012 FINDINGS: There has been no significant interval change. Suture anchors are demonstrated within the greater tuberosity consistent with prior rotator cuff repair. Degenerative arthrosis is present at the glenohumeral joint with osteophyte formation along the inferior humeral head. Moderate osteophyte formation is also present at the acromioclavicular joint. IMPRESSION IMPRESSION: 1. 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 Supervisor [employer]: MALIK Transcribe Date/Time: Jul 13 2020 1:06P Dictated by : PATRICIA GOMES MD This examination was interpreted and the report reviewed and electronically signed by: PATRICIA GOMES MD on Jul 13 2020 1:10PM EST [facility] Radiology Study observation (narrative) [facility] XR Shoulder - right 3 ViewsO rdered By: [facility] Provider on 07-13-2020 [facility] No Panel Information [facility] Vital Signs Date Time Vital Sign Value Performing Clinician Vargas deleon 08-16-2023 17:10-0400 Diastolic blood pressure 72 mm[Hg] Nancy Maldonado MD Work Phone: [facility] 08-16-2023 17:10-0400 Heart rate 57 /min Nancy Maldonado MD Work Phone: [facility] 08-16-2023 17:10-0400 Respiratory rate 17 /min Nancy Maldonado MD Work Phone: [facility] 08-16-2023 17:10-0400 SaO2% (BldA) [Mass fraction] 94 % Nancy Maldonado MD Work Phone: [facility] 08-16-2023 17:10-0400 Systolic blood pressure 119 mm[Hg] Nancy Maldonado MD Work Phone: [facility] 08-16-2023 16:10-0400 Body height 180.3 cm Nancy Maldonado MD Work Phone: [facility] 08-16-2023 16:10-0400 Body mass index (BMI) [Ratio] 23.01 kg/m2 Nancy Maldonado MD Work Phone: [facility] 08-16-2023 16:10-0400 Body temperature 97.7 [degF] Nancy Maldonado MD Work Phone: [facility] 08-16-2023 16:10-0400 Body weight 74.84 kg Nancy Maldonado MD Work Phone: [facility] 03-09-2022 11:05-0500 Heart rate 64 /min Nancy Maldonado MD Work Phone: [facility] 03-09-2022 11:05-0500 SaO2% (BldA) [Mass fraction] 95 % Nancy Maldonado MD Work Phone: [facility] 03-09-2022 11:00-0500 Diastolic blood pressure 62 mm[Hg] Nancy Maldonado MD Work Phone: [facility] 03-09-2022 11:00-0500 Respiratory rate 16 /min Nancy Maldonado MD Work Phone: [facility] 03-09-2022 11:00-0500 Systolic blood pressure 106 mm[Hg] Nancy Maldonado MD Work Phone: [facility] 03-09-2022 09:55-0500 Body height 180.3 cm Nancy Maldonado MD Work Phone: [facility] 03-09-2022 09:55-0500 Body temperature 97.81 [degF] Nancy Maldonado MD Work Phone: [facility] 03-09-2022 09:55-0500 Body weight 77.11 kg Nancy Maldonado MD Work Phone: [facility] Encounters Encounter Date Encounter Type Care Provider Facility Start: 09-18-2023 End: 09-18-2023 ambulatory ELVIRA GARRISON Facility:[facility] Start: 09-18-2023 End: 09-18-2023 Patient encounter procedure Clarisse Fortune PA-C Work Phone: [employer] [facility] Comment on above: Rotator cuff tear ar thropathy of right shoulder (Primary Dx) Start: 08-16-2023 End: 08-16-2023 ambulatory NANCY MALDONADO Facility:[facility] Start: 08-16-2023 End: 08-16-2023 Subsequent hospital visit by physician Nancy Maldonado MD Work Phone: Gastroenterology Comment on above: Esophageal dysphagia [R13.19] Start: 06-08-2023 End: 06-08-2023 ambulatory MODESTO SELLERS Facility:[facility] Start: 06-08-2023 End: 06-08-2023 Patient encounter procedure Clarisse Fortune PA-C Work Phone: [employer] [facility] Comment on above: Rotator cuff tear ar thropathy of right shoulder (Primary Dx) Start: 05-22-2023 End: 05-22-2023 ambulatory Nancy Maldonado MD Work Phone: Gastroenterology Comment on above: Esophageal dysphagia (Primary Dx); Gastroesophageal reflux disease, unspecified whether esophagitis present Start: 05-22-2023 End: 05-22-2023 Telemedicine consultation with patient Nancy Maldonado MD Work Phone: [facility] Start: 02-13-2023 End: 02-13-2023 ambulatory ELVIRA GARRISON Facility:[facility] Start: 09-05-2022 End: 09-05-2022 Patient encounter procedure Elvira Garrison MD Work Phone: [employer] [facility] Comment on above: Rotator cuff tear ar thropathy of right shoulder (Primary Dx) Start: 03-09-2022 End: 03-09-2022 Subsequent hospital visit by physician Nancy Maldonado MD Work Phone: Gastroenterology Comment on above: Other dysphagia [R13 .19] Start: 03-02-2022 Telephone encounter [facility] Comment on above: Appointment; Educati on Of Patient/family ( for 03/09/22) Start: 02-28-2022 End: 02-28-2022 ambulatory Nancy Maldonado MD Work Phone: Gastroenterology Comment on above: Other dysphagia (Essie sandy Dx) Start: 02-28-2022 End: 02-28-2022 Telemedicine consultation with patient Nancy Maldonado MD Work Phone: [facility] Start: 01-24-2022 End: 01-24-2022 Patient encounter procedure Elvira Garrison MD Work Phone: [employer] [facility] Comment on above: Rotator cuff tear ar thropathy of right shoulder (Primary Dx) Start: 08-02-2021 End: 08-02-2021 Patient encounter procedure Elvira Garrison MD Work Phone: [employer] [facility] Comment on above: Rotator cuff tear ar thropathy of right shoulder (Primary Dx) Start: 08-02-2021 End: 08-02-2021 Subsequent hospital visit by physician Xr [facility] Work Phone: Radiology Comment on above: Pain [R52] Start: 11-11-2020 End: 11-12-[address] MODESTO SELLERS Facility: Start: 07-13-2020 End: 07-13-2020 Subsequent hospital visit by physician Xr [facility] Work Phone: Radiology Comment on above: Pain [R52] Procedures Date Procedure Procedure Detail Performing Clinician Start: 09-18-2023 Arthrocentesis aspir &/inj major jt/bursa w/o us Clarisse Garuccio PA-C Work Phone: Start: 08-16-2023 Esophagoscp rig mendez soral hypopharynx crv bang Maldonado MD Work Phone: Start: 06-08-2023 Arthrocentesis aspir &/inj major jt/bursa w/o us Clarisse Devika MCNULTY Work Phone: Start: 09-05-2022 Arthrocentesis aspir &/inj major jt/bursa w/o us Elvira Garrison MD Work Phone: Start: 03-09-2022 Esophagoscp rig mendez soral hypopharynx crv bang Maldonado MD Work Phone: Start: 01-24-2022 Arthrocentesis aspir &/inj major jt/bursa w/o us Elvira Garrison MD Work Phone: Start: 08-02-2021 Arthrocentesis aspir &/inj major jt/bursa w/o us Elvira Garrison MD Work Phone: Start: 08-02-2021 Radex shoulder compl ete minimum 2 views Elvira Garrison MD Work Phone: Start: 10-07-[address] MODESTO SELLERS Comment on above: Performed By: #### P [facility] #### [facility] [address] [place] [address] Dr. Brett Shea Start: 07-13-2020 Radex shoulder compl ete minimum 2 views Elvira Garrison MD Work Phone: Start: 01-10-2017 Colonoscopy Elvira burns MD Work Phone: Plan of Treatment Date Care Activity Detail Author Start: 10-07-2023 Covid-19 Vaccine () Covid-19 Vaccine () [facility] Start: 10-07-2023 Influenza vaccination C [facility] Start: 02-05-2023 Advance Directive Discussion Advance Directive Discussion [facility] Start: 02-05-2023 Behavioral Health Screening Behavioral Health Screening [facility] Start: 10-06-2022 Covid-19 Vaccine () Covid-19 Vaccine () [facility] Start: 10-06-2022 Influenza vaccination INFLUENZA (#1) [facility] Start: 02-05-2022 ADVANCE DIRECTIVE DISCUSSION ADVANCE DIRECTIVE DISCUSSION [facility] Start: 02-05-2022 DEPRESSION ASSESSMENT DEPRESSION ASS ESSMENT [facility] Start: 10-24-2021 COVID-19 VACCINE (5 - Booster for Pfizer series) COVID-19 VACCINE (5 - Booster for Pfizer series) [facility] Start: 10-24-2021 COVID-19 VACCINE (5 - Pfizer series) COVID-19 VACCINE (5 - Pfizer series) [facility] Start: 04-06-2021 COVID-19 VACCINE (4 - Booster for Pfizer series) COVID-19 VACCINE (4 - Booster for Pfizer series) [facility] Start: 02-05-2021 ADVANCE DIRECTIVE DISCUSSION ADVANCE DIRECTIVE DISCUSSION [facility] Start: 02-05-2021 DEPRESSION ASSESSMENT DEPRESSION ASS ESSMENT [facility] Start: 02-01-2021 COVID-19 VACCINE (4 - Booster for Pfizer series) COVID-19 VACCINE (4 - Booster for Pfizer series) [facility] Start: 01-10-2018 Colonoscopy COLONOSCOPY [facility] Start: 01-10-2018 COLORECTAL CANCER SCREENING COLORECTAL CANCER SCREENING [facility] Start: 01-10-2018 Screening for malign ant neoplasm of colon [facility] Start: 10-22-2017 Urine microalbumin profile DTaP,Tdap,Td Vaccine (1 - Tdap) [facility] Start: 07-21-2016 PNEUMOCOCCAL: 65+ (1 - PCV) PNEUMOCOCCAL: 65+ (1 - PCV) [facility] Start: 2011 RSV Vaccine (1 - 1-d ose 60+ series) RSV Vaccine (1 - 1-dose 60+ series) [facility] Start: 2011 RSV Vaccine (1 - Ris k 60-74 years 1-dose series) RSV Vaccine (1 - Risk 60-74 years 1-dose series) [facility] Start: 05-03-2006 DIABETES SCREEN DIABETES SCREEN [facility] Start: 05-03-2006 Diabetes Screening Diabetes Screenin g [facility] Start: 07-21-2001 SHINGRIX VACCINE (1 of 2) SHINGRIX VACCINE (1 of 2) [facility] Start: 07-21-1996 COLOGUARD (FIT-DNA) COLOGUARD (FIT-D NA) [facility] Start: 07-21-[address] COLONOGRAPHY [facility] Start: 07-21-1996 FECAL OCCULT BLOOD FECAL OCCULT BLOO D [facility] Start: 07-21-1996 Screening for malign ant neoplasm of colon [facility] Start: 07-21-1996 SIGMOIDOSCOPY SIGMOIDOSCOPY [facility] Start: 07-21-1986 Lipid panel Lipid Screening [facility] Start: 07-21-1986 LIPID SCREEN LIPID SCREEN [facility] Start: 07-21-1970 Urine microalbumin profile DTAP,TDAP,TD (1 - Tdap) [facility] Start: 07-21-1969 Anxiety Screening Anxiety Screening [facility] Start: 07-21-1969 Depression Screening Depression Scre [facility] Start: 07-21-1969 HEPATITIS C SCREENING HEPATITIS C [facility] Start: 07-21-1969 Hepatitis C screening Hepatitis C [facility] Start: 1963 Adult depression screening assessment DEPRESSION SCREENING [facility] End: 02-28-2023 EGD - THERAPEUTIC, EUS, OR TUBE INTERVENTIONS EGD - THERAPEUTIC, EUS, OR TUBE INTERVENTIONS Endoscopy Routine Other dysphagia 1 Occurrences starting 02/28/2022 until 02/28/2023 [facility] Work Phone: Comment on above: 1 Occurrences starti ng 02/28/2022 until 02/28/2023 End: 05-21-2024 EGD - THERAPEUTIC, EUS, OR TUBE INTERVENTIONS EGD - THERAPEUTIC, EUS, OR TUBE INTERVENTIONS Endoscopy Routine Esophageal dysphagia 1 Occurrences starting 05/22/2023 until 05/21/2024 [facility] Work Phone: Comment on above: 1 Occurrences starti ng 05/22/2023 until 05/21/2024 [facility] c Immunizations Immunization Date Immunization Notes Care Provider Fa cili 11-09-2021 influenza virus vaccine, unspecified formulation Nancy Maldonado MD Work Phone: [facility] Payers Date Payer Category Payer Medicare AETNA MEDICARE A ETNA MEDICARE PPO [id number] 2021-Present [phone] [address] [place] [address] PPO [id number] 2021 Medicare [id number] 2016 Medicare [id number] 1959 Medicare [id number] 1950 Unknown [id number] Social History Date Type Detail Facility Start: 11-30-2016 End: 01-24-2022 Tobacco smoking status NHIS Never smoked tobacco [facility] Start: 11-30-2016 End: 01-24-2022 Tobacco use and exposure Smokeless tobacco non-user [facility] Start: 07-13-2020 End: 08-02-2021 Alcohol intake Current non-drinker of alcohol (finding) [facility] Start: 1950 Sex Assigned At Male C [facility] Start: 06-13-2020 End: 08-02-2021 Exposure to SARS-CoV-2 (event) Not sure [facility] Start: 01-13-2020 End: 09-05-2022 History of Social function [facility] Start: 01-13-2020 End: 09-05-2022 Tobacco use panel [facility] National Score (1-10 0), lower number is lower risk Not on file [facility] Start: 03-23-2020 Gender identity Identifies as male gender (finding) [facility] Start: 03-23-2020 Sexual orientation Heterosexual (jazzmine zamudio) [facility] Clinical Notes 07-13-2020 to 09-18-2023 Clarisse Fortune PA-C - 09/18/2023 8:50 AM Sammi Mendez RN - 08/16/2023 4:47 PM Sammi Mendez RN - 08/16/2023 4:47 PM Darleen Lloyd RN - 08/16/2023 4:11 PM EDT Note Date & Type Note Facility 09-18-2023 History of Presen t illness Narrative Associated Order(s): Large Joint Arthro/Inj: R subacromial bursa Post-Procedure Diagnose(s): Rotator cuff tear arthropathy of right shoulder FOLLOW UP APPOINTMENT Chief Complaint:/Reason for Visit: Established patient; Scheduled follow up appointment for new or existing problem and/or post-surgical evaluation History of Present Illness: Chasity Ruiz follows up today for his right shoulder. He is here for repeat right shoulder injection. Continues to get moderate relief. ROS: Constitutional: patient denies any recent fever or significant change in weight Cardiovascular: patient denies any chest pain at rest Respiratory: patient denies any shortness of breath or cough Gastrointestinal: patient denies any current abdominal discomfort Integumentary: patient denies any recent skin changes Musculoskeletal: as noted in the HPI Neurologic: as noted in the HPI Endocrine: patient denies a current diagnosis of diabetes Hematologic/Lymphatic: patient denies any easily bleeding, any recent infection and denies any recent observable lymph node enlargement Psychologic: negative for any recent depression or anxiety issues PAST MEDICAL HISTORY No date: Hypertension No date: Tuberculosis Current Outpatient Medications: psyllium seed, with dextrose, (FIBER ORAL) hydroCHLOROthiazide (HYDRODIURIL, ESIDRIX) [address] (PROTONIX) 40 mg tablet simvastatin (ZOCOR) 40 mg tablet COQ10, UBIQUINOL, ORAL losartan (COZAAR) 100 mg tablet multivitamin ORAL tablet Aspirin 81 mg ORAL Tab Problem List: reviewed and updated. Physical Exam: Constitutional: No acute distress, pleasant Resp: Non-labored breathing Vascular: No cyanosis Skin: No rashes noted Focused Musculoskeletal exam: General: Ambulates well; no other joint abnormalities noted. Motor: 5/5 IO, FPL, OP, hand change release manager, biceps, triceps, deltoid Sensory: SILT ulnar/median/radial distributions bilat (C1-T1 intact) ROM: intact in all joints. Pulses: 2+ radial, ulnar; hands warm bilat, <2sec CR Compartments: soft and compressible Assessment: (M75.101, M12.811) Rotator cuff tear arthropathy of right shoulder (primary encounter diagnosis) Plan/Medical Decision Making:The nature of the problem and all indicated treatment options available were discussed in detail with the patient. Test(s)/Imaging/Referral(s): None 2. Intervention: Continue conservative treatment and CSI 3. Follow-up: as needed All of Chasity Ruiz questions were answered today. He expressed a clear understanding of our discussion and is in agreement with the outlined treatment plan Clarisse Fortune PA-C Large Joint Arthro/Inj: R subacromial bursa Informed Consent Consent Obtained: Verbal [place] Protocol A moment to CARE was completed. SIGN IN Sign in communication not applicable due to emergent procedure. Personnel directly involved with the procedure wore the appropriate PPE. Special Equipment: N/A Patient/Surrogate Stated/Verified: Patient name, Date of , Relevant allergies and Intended procedure TIME OUT Intended patient and procedure match the source document(s). Consent documented and matches the intended procedure. Relevant labs, photos, and/or imaging studies have been reviewed. Correct side/site marked and visible. Medications required for procedure verified. No fire risk assessment and interventions applicable. No implant(s) inserted. 09/18/2023 8:54 AM The procedure site was prepped in the usual sterile fashion. Site: R subacromial bursa Medications: 40 mg triamcinolone acetonide 40 mg/mL Anesthetics: 4 mL lidocaine (PF) 10 mg/mL (1 %) Outcome: Tolerated well, no immediate complications Post-injection instructions were reviewed with the patient and the patient voiced understanding of these instructions. SIGN OUT All instruments, equipment, possible retained foreign bodies accounted for. documented in this encounter [facility] 09-18-2023 Note HNO ID: [id number] Author: CLARISSE FORTUNE PA-C Service: ? Author Type: Physician Low Heel Builder Type: Progress Notes Filed: 09/18/2023 08:54 Note Text: FOLLOW UP APPOINTMENT Chief Complaint:/Reason for Visit: Established patient; Scheduled follow up appointment for new or existing problem and/or post-surgical evaluation History of Present Illness: Chasity Ruiz follows up today for his right shoulder. He is here for repeat right shoulder injection. Continues to get moderate relief. ROS: Constitutional: patient denies any recent fever or significant change in weight Cardiovascular: patient denies any chest pain at rest Respiratory: patient denies any shortness of breath or cough Gastrointestinal: patient denies any current abdominal discomfort Integumentary: patient denies any recent skin changes Musculoskeletal: as noted in the HPI Neurologic: as noted in the HPI Endocrine: patient denies a current diagnosis of diabetes Hematologic/Lymphatic: patient denies any easily bleeding, any recent infection and denies any recent observable lymph node enlargement Psychologic: negative for any recent depression or anxiety issues PAST MEDICAL HISTORY No date: Hypertension No date: Tuberculosis Current Outpatient Medications: psyllium seed, with dextrose, (FIBER ORAL) hydroCHLOROthiazide (HYDRODIURIL, ESIDRIX) [address] (PROTONIX) 40 mg tablet simvastatin (ZOCOR) 40 mg tablet COQ10, UBIQUINOL, ORAL losartan (COZAAR) 100 mg tablet multivitamin ORAL tablet Aspirin 81 mg ORAL Tab Problem List: reviewed and updated. Physical Exam: Constitutional: No acute distress, pleasant Resp: Non-labored breathing Vascular: No cyanosis Skin: No rashes noted Focused Musculoskeletal exam: General: Ambulates well; no other joint abnormalities noted. Motor: 5/5 IO, FPL, OP, hand change release manager, biceps, triceps, deltoid Sensory: SILT ulnar/median/radial distributions bilat (C1-T1 intact) ROM: intact in all joints. Pulses: 2+ radial, ulnar; hands warm bilat, <2sec CR Compartments: soft and compressible Assessment: (M75.101, M12.811) Rotator cuff tear arthropathy of right shoulder (primary encounter diagnosis) Plan/Medical Decision Making:The nature of the problem and all indicated treatment options available were discussed in detail with the patient. Test(s)/Imaging/Referral(s): None 2. Intervention: Continue conservative treatment and CSI 3. Follow-up: as needed All of Chasity Ruiz questions were answered today. He expressed a clear understanding of our discussion and is in agreement with the outlined treatment plan Clarisse Fortune PA-C Large Joint Arthro/Inj: R subacromial bursa Informed Consent Consent Obtained: Verbal [place] Protocol A moment to CARE was completed. SIGN IN Sign in communication not applicable due to emergent procedure. Personnel directly involved with the procedure wore the appropriate PPE. Special Equipment: N/A Patient/Surrogate Stated/Verified: Patient name, Date of , Relevant allergies and Intended procedure TIME OUT Intended patient and procedure match the source document(s). Consent documented and matches the intended procedure. Relevant labs, photos, and/or imaging studies have been reviewed. Correct side/site marked and visible. Medications required for procedure verified. No fire risk assessment and interventions applicable. No implant(s) inserted. 09/18/2023 8:54 AM The procedure site was prepped in the usual sterile fashion. Site: R subacromial bursa Medications: 40 mg triamcinolone acetonide 40 mg/mL Anesthetics: 4 mL lidocaine (PF) 10 mg/mL (1 %) Outcome: Tolerated well, no immediate complications Post-injection instructions were reviewed with the patient and the patient voiced understanding of these instructions. SIGN OUT All instruments, equipment, possible retained foreign bodies accounted for. [facility] 08-16-2023 Nurse Note AMBULATORY PATIENT EDUCATION NOTE TOPIC: GI PROCEDURES: Esophagogastroduodenoscopy(EGD) for control of bleeding,dilation(any means),imaging,tube placement READINESS TO LEARN INSTRUCTION PROVIDED TO: Patient, readness to learn accessed prior to procedure and Family member COGNITIVE ABILITY: Alert and oriented PTED MOTIVATION TO LEARN: Interested FAMILY SUPPORT: High - Very involved in pt care IPATIENT LEARNS BEST BY: Individual Instruction Written Instruction - Hand-outs Verbal Instruction FACTORS AFFECTING LEARNING: None PHYSICAL LIMITATIONS AFFECTING LEARNING: None LEARNING RESPONSE METHOD OF INSTRUCTION: Individual instruction PATIENT / FAMILY RESPONSE: Verbalizes understanding of: WORSENING CONDITION-Signs and symptoms of a worsening condition that warrant a call to the physician FOLLOW-UP PLAN: Patient instructed to call with any further issues Recommend - Recommend continued instruction and follow up as directed Contact information given. SUPPLEMENTAL MATERIAL: Procedure Discharge Instructions REFERRAL (RECOMMENDATION): None [facility] 08-16-2023 Nurse Note AMBULATORY PATIENT EDUCATION NOTE TOPIC: GI PROCEDURES: Esophagogastroduodenoscopy(EGD) for control of bleeding,dilation(any means),imaging,tube placement READINESS TO LEARN INSTRUCTION PROVIDED TO: Patient, readness to learn accessed prior to procedure and Family member COGNITIVE ABILITY: Alert and oriented PTED MOTIVATION TO LEARN: Interested FAMILY SUPPORT: High - Very involved in pt care IPATIENT LEARNS BEST BY: Individual Instruction Written Instruction - Hand-outs Verbal Instruction FACTORS AFFECTING LEARNING: None PHYSICAL LIMITATIONS AFFECTING LEARNING: None LEARNING RESPONSE METHOD OF INSTRUCTION: Individual instruction PATIENT / FAMILY RESPONSE: Verbalizes understanding of: WORSENING CONDITION-Signs and symptoms of a worsening condition that warrant a call to the physician FOLLOW-UP PLAN: Patient instructed to call with any further issues Recommend - Recommend continued instruction and follow up as directed Contact information given. SUPPLEMENTAL MATERIAL: Procedure Discharge Instructions REFERRAL (RECOMMENDATION): None PRE OP LEARNING ASSESSMENT PROCEDURE/SURGERY: GI PROCEDURES: EGD READINESS TO LEARN COGNITIVE ABILITY: Alert and oriented MOTIVATION TO LEARN: Interested FAMILY SUPPORT: Unable to assess - Family not present PATIENT LEARNS BEST BY: Individual Instruction FACTORS AFFECTING LEARNING: None PHYSICAL LIMITATIONS AFFECTING LEARNING: None Electronically Signed By: Darleen Heredia RN In Department: GASTROENTEROLOGY documented in this encounter [facility] 08-16-2023 Nurse Note PRE OP LEARNING ASSESSMENT PROCEDURE/SURGERY: GI PROCEDURES: EGD READINESS TO LEARN COGNITIVE ABILITY: Alert and oriented MOTIVATION TO LEARN: Interested FAMILY SUPPORT: Unable to assess - Family not present PATIENT LEARNS BEST BY: Individual Instruction FACTORS AFFECTING LEARNING: None PHYSICAL LIMITATIONS AFFECTING LEARNING: None Electronically Signed By: Darleen Heredia RN In Department: GASTROENTEROLOGY [facility] 06-08-2023 Note HNO ID: [id number] Author: CLARISSE FORTUNE PA-C Service: ? Author Type: Physician Low Heel Builder Type: Progress Notes Filed: 06/08/2023 09:05 Note Text: FOLLOW UP APPOINTMENT Chief Complaint:/Reason for Visit: Established patient; Scheduled follow up appointment for new or existing problem and/or post-surgical evaluation History of Present Illness: Chasity Ruiz follows up today for his right shoulder. He is here for repeat cortisone injection. Last injection lasted about 4 months. ROS: Constitutional: patient denies any recent fever or significant change in weight Cardiovascular: patient denies any chest pain at rest Respiratory: patient denies any shortness of breath or cough Gastrointestinal: patient denies any current abdominal discomfort Integumentary: patient denies any recent skin changes Musculoskeletal: as noted in the HPI Neurologic: as noted in the HPI Endocrine: patient denies a current diagnosis of diabetes Hematologic/Lymphatic: patient denies any easily bleeding, any recent infection and denies any recent observable lymph node enlargement Psychologic: negative for any recent depression or anxiety issues PAST MEDICAL HISTORY Diagnosis Date Hypertension Tuberculosis Current Outpatient Medications: psyllium seed, with dextrose, (FIBER ORAL) hydroCHLOROthiazide (HYDRODIURIL, ESIDRIX) [address] (PROTONIX) 40 mg tablet simvastatin (ZOCOR) 40 mg tablet COQ10, UBIQUINOL, ORAL losartan (COZAAR) 100 mg tablet multivitamin ORAL tablet Aspirin 81 mg ORAL Tab Problem List: reviewed and updated. Physical Exam: Constitutional: No acute distress, pleasant Resp: Non-labored breathing Vascular: No cyanosis Skin: No rashes noted Focused Musculoskeletal exam: General: Ambulates well; no other joint abnormalities noted. Motor: 5/5 IO, FPL, OP, hand change release manager, biceps, triceps, deltoid Sensory: SILT ulnar/median/radial distributions bilat (C1-T1 intact) ROM: intact in all joints. Pulses: 2+ radial, ulnar; hands warm bilat, <2sec CR Compartments: soft and compressible Assessment: (M75.101, M12.811) Rotator cuff tear arthropathy of right shoulder (primary encounter diagnosis) Plan/Medical Decision Making:The nature of the problem and all indicated treatment options available were discussed in detail with the patient. Test(s)/Imaging/Referral(s): None 2. Intervention: Continue conservative treatment and CSI 3. Follow-up: as needed All of Chasity Ruiz questions were answered today. He expressed a clear understanding of our discussion and is in agreement with the outlined treatment plan Clarisse Fortune PA-C Large Joint Arthro/Inj: R subacromial bursa Informed Consent Consent Obtained: Verbal [place] Protocol A moment to CARE was completed. SIGN IN Sign in communication not applicable due to emergent procedure. Personnel directly involved with the procedure wore the appropriate PPE. Special Equipment: N/A Patient/Surrogate Stated/Verified: Patient name, Date of , Relevant allergies and Intended procedure TIME OUT Intended patient and procedure match the source document(s). Consent documented and matches the intended procedure. Relevant labs, photos, and/or imaging studies have been reviewed. Correct side/site marked and visible. Medications required for procedure verified. No fire risk assessment and interventions applicable. No implant(s) inserted. 06/08/2023 8:58 AM The procedure site was prepped in the usual sterile fashion. Site: R subacromial bursa Medications: 40 mg triamcinolone acetonide 40 mg/mL Anesthetics: 4 mL lidocaine (PF) 10 mg/mL (1 %) Outcome: Tolerated well, no immediate complications Post-injection instructions were reviewed with the patient and the patient voiced understanding of these instructions. SIGN OUT All instruments, equipment, possible retained foreign bodies accounted for. [facility] 06-08-2023 History of Presen t illness Narrative Associated Order(s): Large Joint Arthro/Inj: R subacromial bursa Post-Procedure Diagnose(s): Rotator cuff tear arthropathy of right shoulder FOLLOW UP APPOINTMENT Chief Complaint:/Reason for Visit: Established patient; Scheduled follow up appointment for new or existing problem and/or post-surgical evaluation History of Present Illness: Chasity Ruiz follows up today for his right shoulder. He is here for repeat cortisone injection. Last injection lasted about 4 months. ROS: Constitutional: patient denies any recent fever or significant change in weight Cardiovascular: patient denies any chest pain at rest Respiratory: patient denies any shortness of breath or cough Gastrointestinal: patient denies any current abdominal discomfort Integumentary: patient denies any recent skin changes Musculoskeletal: as noted in the HPI Neurologic: as noted in the HPI Endocrine: patient denies a current diagnosis of diabetes Hematologic/Lymphatic: patient denies any easily bleeding, any recent infection and denies any recent observable lymph node enlargement Psychologic: negative for any recent depression or anxiety issues PAST MEDICAL HISTORY Diagnosis Date Hypertension Tuberculosis Current Outpatient Medications: psyllium seed, with dextrose, (FIBER ORAL) hydroCHLOROthiazide (HYDRODIURIL, ESIDRIX) [address] (PROTONIX) 40 mg tablet simvastatin (ZOCOR) 40 mg tablet COQ10, UBIQUINOL, ORAL losartan (COZAAR) 100 mg tablet multivitamin ORAL tablet Aspirin 81 mg ORAL Tab Problem List: reviewed and updated. Physical Exam: Constitutional: No acute distress, pleasant Resp: Non-labored breathing Vascular: No cyanosis Skin: No rashes noted Focused Musculoskeletal exam: General: Ambulates well; no other joint abnormalities noted. Motor: 5/5 IO, FPL, OP, hand change release manager, biceps, triceps, deltoid Sensory: SILT ulnar/median/radial distributions bilat (C1-T1 intact) ROM: intact in all joints. Pulses: 2+ radial, ulnar; hands warm bilat, <2sec CR Compartments: soft and compressible Assessment: (M75.101, M12.811) Rotator cuff tear arthropathy of right shoulder (primary encounter diagnosis) Plan/Medical Decision Making:The nature of the problem and all indicated treatment options available were discussed in detail with the patient. Test(s)/Imaging/Referral(s): None 2. Intervention: Continue conservative treatment and CSI 3. Follow-up: as needed All of Chasity Ruiz questions were answered today. He expressed a clear understanding of our discussion and is in agreement with the outlined treatment plan Clarisse Fortune PA-C Large Joint Arthro/Inj: R subacromial bursa Informed Consent Consent Obtained: Verbal [place] Protocol A moment to CARE was completed. SIGN IN Sign in communication not applicable due to emergent procedure. Personnel directly involved with the procedure wore the appropriate PPE. Special Equipment: N/A Patient/Surrogate Stated/Verified: Patient name, Date of , Relevant allergies and Intended procedure TIME OUT Intended patient and procedure match the source document(s). Consent documented and matches the intended procedure. Relevant labs, photos, and/or imaging studies have been reviewed. Correct side/site marked and visible. Medications required for procedure verified. No fire risk assessment and interventions applicable. No implant(s) inserted. 06/08/2023 8:58 AM The procedure site was prepped in the usual sterile fashion. Site: R subacromial bursa Medications: 40 mg triamcinolone acetonide 40 mg/mL Anesthetics: 4 mL lidocaine (PF) 10 mg/mL (1 %) Outcome: Tolerated well, no immediate complications Post-injection instructions were reviewed with the patient and the patient voiced understanding of these instructions. SIGN OUT All instruments, equipment, possible retained foreign bodies accounted for. documented in this encounter [facility] 05-22-2023 Note HNO ID: [id number] Author: NANCY MALDONADO MD Service: ? Author Type: Physician Type: Progress Notes Filed: 05/22/2023 10:51 Note Text: VIRTUAL VISIT Chasity Ruiz is a 72 year old male who is scheduled for a virtual visit for difficulty swallowing at the consult request of self I have communicated my name and active licensure. The patient's identity and physical location were verified at the time of this visit. Either the patient or their legal office services representative has been informed of the risks and benefits of -- and alternatives to -- treatment through a remote evaluation and consents to proceed with the evaluation remotely. My final recommendations will be communicated back to the requesting physician by the way of the shared medical record, fax, or via [place] Mail. HISTORY: 72 yr old [facility] man with dysphagia Known peptic stridture- s/p dilation in 03/2022 Now having recurrent symptoms for past month Dysphagia to pills, meat etc PAST MEDICAL HISTORY Diagnosis Date Hypertension Tuberculosis No past surgical history on file. No family history on file. Social History Tobacco Use Smoking status: Never Smokeless tobacco: Never Substance Use Topics Alcohol use: No Drug use: No Current Outpatient Medications Medication Sig Dispense Refill psyllium seed, with dextrose, (FIBER ORAL) Take by mouth once daily. hydroCHLOROthiazide (HYDRODIURIL, ESIDRIX) 25 mg tablet Take 25 mg by mouth once daily. pantoprazole DR (PROTONIX) 40 mg tablet Take 40 mg by mouth once daily. simvastatin (ZOCOR) 40 mg tablet Take 40 mg by mouth daily at bedtime. COQ10, UBIQUINOL, ORAL Take 200 mg by mouth once daily. losartan (COZAAR) 100 mg tablet Take 100 mg by mouth once daily. multivitamin ORAL tablet Take 1 tablet by mouth once daily. Aspirin 81 mg ORAL Tab Take 81 mg by mouth. No current facility-administered medications for this visit. ALLERGIES Not on File REVIEW OF SYSTEMS: PAIN ASSESSMENT: Negative for pain, history of chronic pain, or current treatment for a chronic pain condition. GENERAL: No weight loss, malaise or fevers RESPIRATORY: Negative for cough, hemoptysis, wheezing, COPD, dyspnea or shortness of breath CARDIOVASCULAR: Negative for chest pain, leg swelling, hypertension, CHF or palpitations GI: as above MUSCULOSKELETAL: Negative for joint pain or swelling, back pain or muscle pain SKIN: Negative for lesions, rash, and itching ENDOCRINE: Negative for cold or heat intolerance, polyuria, polydipsia and goiter NEURO: No history of headaches, syncope, paralysis, seizures or tremors PHYSICAL FINDINGS OF NOTE: Patient reported height 5'11 and weight 170 lbs General - Normal, healthy, cooperative, in no acute distress Able to interact verbally by video conference Psych - ORIENTATION: normal to time place, person and situation Mood/Affect: AFFECT AND MOOD: Normal Head/Neuro - Normal size and shape Facial appearance normal Pulmonary - respiratory effort normal Cardiovascular - patient describes extremities normal, warm, no cyanosis,no clubbing, and no edema Skin - abnormal lesions not visualized Motor - patient seen sitting with Normal appearing strength and coordination REVIEWED ITEMS Prior work up ASSESSMENT AND PLAN 1) Dysphagia- Known peptic stricture EGD with dilation 2) GERD- Continue with protonix 40 mg once daily 3) CRC screening- colonosocpy 2026 I HAVE offered the patient an outpatient appointment for further care at [facility]. I spent a total of 35 minutes on the date of the service which included preparing to see the patient, [id number] patient care, completing clinical documentation, obtaining and/or reviewing separately obtained history, performing a medically appropriate examination, counseling and educating the patient/family/caregiver, ordering medications, tests, or procedures, communicating with other HCPs (not separately reported), independently interpreting results (not separately reported), communicating results to the patient/family/caregiver, and care coordination (not separately reported). Nancy Maldonado MD Answers submitted by the patient for this visit: Review of Systems Gastroenterology (Submitted on 05/21/2023) Fever: No Chills: No Night Sweats: No Unitentional Weight Change: No A Cough: No Difficulty Breathing: No Chest Pain: No Belly pain: No A feeling of fullness or have belly pain after eating: No Food getting stuck in your throat or chest after eating: Yes Nausea - that is, a feeling like you could vomit: No Regurgitation - that is, food or liquid coming back up into your throat or mouth without vomiting, or feel burning behind your breast bone: Yes Loss of appetite: Yes To throw up or vomit: Yes Blood in your stools: No Black tarry stools: No Loose or watery stools: No The feeling like you need to empty your bowels right away - that is, feel as if you would hav (more content not included)... [facility] 05-22-2023 History of Presen t illness Narrative VIRTUAL VISIT Chasity Ruiz is a 72 year old male who is scheduled for a virtual visit for difficulty swallowing at the consult request of self I have communicated my name and active licensure. The patient's identity and physical location were verified at the time of this visit. Either the patient or their legal office services representative has been informed of the risks and benefits of -- and alternatives to -- treatment through a remote evaluation and consents to proceed with the evaluation remotely. My final recommendations will be communicated back to the requesting physician by the way of the shared medical record, fax, or via [place] Mail. HISTORY: 72 yr old [facility] man with dysphagia Known peptic stridture- s/p dilation in 03/2022 Now having recurrent symptoms for past month Dysphagia to pills, meat etc PAST MEDICAL HISTORY Diagnosis Date Hypertension Tuberculosis No past surgical history on file. No family history on file. Social History Tobacco Use Smoking status: Never Smokeless tobacco: Never Substance Use Topics Alcohol use: No Drug use: No Current Outpatient Medications Medication Sig Dispense Refill psyllium seed, with dextrose, (FIBER ORAL) Take by mouth once daily. hydroCHLOROthiazide (HYDRODIURIL, ESIDRIX) 25 mg tablet Take 25 mg by mouth once daily. pantoprazole DR (PROTONIX) 40 mg tablet Take 40 mg by mouth once daily. simvastatin (ZOCOR) 40 mg tablet Take 40 mg by mouth daily at bedtime. COQ10, UBIQUINOL, ORAL Take 200 mg by mouth once daily. losartan (COZAAR) 100 mg tablet Take 100 mg by mouth once daily. multivitamin ORAL tablet Take 1 tablet by mouth once daily. Aspirin 81 mg ORAL Tab Take 81 mg by mouth. No current facility-administered medications for this visit. ALLERGIES Not on File REVIEW OF SYSTEMS: PAIN ASSESSMENT: Negative for pain, history of chronic pain, or current treatment for a chronic pain condition. GENERAL: No weight loss, malaise or fevers RESPIRATORY: Negative for cough, hemoptysis, wheezing, COPD, dyspnea or shortness of breath CARDIOVASCULAR: Negative for chest pain, leg swelling, hypertension, CHF or palpitations GI: as above MUSCULOSKELETAL: Negative for joint pain or swelling, back pain or muscle pain SKIN: Negative for lesions, rash, and itching ENDOCRINE: Negative for cold or heat intolerance, polyuria, polydipsia and goiter NEURO: No history of headaches, syncope, paralysis, seizures or tremors PHYSICAL FINDINGS OF NOTE: Patient reported height 5'11 and weight 170 lbs General - Normal, healthy, cooperative, in no acute distress Able to interact verbally by video conference Psych - ORIENTATION: normal to time place, person and situation Mood/Affect: AFFECT AND MOOD: Normal Head/Neuro - Normal size and shape Facial appearance normal Pulmonary - respiratory effort normal Cardiovascular - patient describes extremities normal, warm, no cyanosis,no clubbing, and no edema Skin - abnormal lesions not visualized Motor - patient seen sitting with Normal appearing strength and coordination REVIEWED ITEMS Prior work up ASSESSMENT AND PLAN 1) Dysphagia- Known peptic stricture EGD with dilation 2) GERD- Continue with protonix 40 mg once daily 3) CRC screening- colonosocpy 2026 I HAVE offered the patient an outpatient appointment for further care at [facility]. I spent a total of 35 minutes on the date of the service which included preparing to see the patient, [id number] patient care, completing clinical documentation, obtaining and/or reviewing separately obtained history, performing a medically appropriate examination, counseling and educating the patient/family/caregiver, ordering medications, tests, or procedures, communicating with other HCPs (not separately reported), independently interpreting results (not separately reported), communicating results to the patient/family/caregiver, and care coordination (not separately reported). Nancy Maldonado MD Answers submitted by the patient for this visit: Review of Systems Gastroenterology (Submitted on 05/21/2023) Fever: No Chills: No Night Sweats: No Unitentional Weight Change: No A Cough: No Difficulty Breathing: No Chest Pain: No Belly pain: No A feeling of fullness or have belly pain after eating: No Food getting stuck in your throat or chest after eating: Yes Nausea - that is, a feeling like you could vomit: No Regurgitation - that is, food or liquid coming back up into your throat or mouth without vomiting, or feel burning behind your breast bone: Yes Loss of appetite: Yes To throw up or vomit: Yes Blood in your stools: No Black tarry stools: No Loose or watery stools: No The feeling like you need to empty your bowels right away - that is, feel as if you would have an accident: No Bowel incontinence - that is, have an accident because you cannot make it to the bathroom in time: No Problems with straining while having bowel movements , hard or lumpy stools, or feel unfinished (that you have not passed all your stool): No Pain in rectum or anus during bowel movements: No Problems with jaundice - that is, yellow discoloration of your skin or eyes, now or in the past: No Problems with having to flush the toilet more than two times due to oily stool, or see stool floating with oil: No documented in this encounter [facility] 02-13-2023 Note HNO ID: [id number] Author: ELVIRA GARRISON MD Service: ? Author Type: Physician Type: Progress Notes Filed: 02/13/2023 09:49 Note Text: Assessment/Primary Diagnosis: (M75.101, M12.811) Rotator cuff tear arthropathy of right shoulder (primary encounter diagnosis) Fellow/resident history and physical examination reviewed and confirmed by the attending physician. The attending physician obtained additional history and performed focused physical examination. All imaging and laboratory studies were reviewed by the attending physician with fellow/resident and the patient. Treatment care plan discussed with the fellow/resident and completely explained to the patient. The attending physician was present for and supervised any injections. All of the patient's questions were answered by the attending physician. [facility] 02-13-2023 Note HNO ID: [id number] Author: TOMY PEREZ MD Service: ? Author Type: Physician Type: Progress Notes Filed: 02/13/2023 09:49 Note Text: FOLLOW UP APPOINTMENT Chief Complaint:/Reason for Visit: Established patient; Scheduled follow up appointment for new or existing problem and/or post-surgical evaluation History of Present Illness: Chasity Ruiz follows up today for his right shoulder. Last injection was in September. Has been getting injections and gets about 4 months of relief. Has trouble after working a full day ([employer]) and at night. ROS: Constitutional: patient denies any recent fever or significant change in weight Cardiovascular: patient denies any chest pain at rest Respiratory: patient denies any shortness of breath or cough Gastrointestinal: patient denies any current abdominal discomfort Integumentary: patient denies any recent skin changes Musculoskeletal: as noted in the HPI Neurologic: as noted in the HPI Endocrine: patient denies a current diagnosis of diabetes Hematologic/Lymphatic: patient denies any easily bleeding, any recent infection and denies any recent observable lymph node enlargement Psychologic: negative for any recent depression or anxiety issues PAST MEDICAL HISTORY Diagnosis Date Hypertension Tuberculosis Current Outpatient Medications: psyllium seed, with dextrose, (FIBER ORAL) hydroCHLOROthiazide (HYDRODIURIL, ESIDRIX) [address] (PROTONIX) 40 mg tablet simvastatin (ZOCOR) 40 mg tablet COQ10, UBIQUINOL, ORAL losartan (COZAAR) 100 mg tablet multivitamin ORAL tablet Aspirin 81 mg ORAL Tab Problem List: reviewed and updated. Physical Exam: Constitutional: No acute distress, pleasant Resp: Non-labored breathing Vascular: No cyanosis Skin: No rashes noted Focused Musculoskeletal exam: General: Ambulates well; no other joint abnormalities noted. Motor: 5/5 IO, FPL, OP, hand change release manager, biceps, triceps, deltoid Sensory: SILT ulnar/median/radial distributions bilat (C1-T1 intact) ROM: intact in all joints. Pulses: 2+ radial, ulnar; hands warm bilat, <2sec CR Compartments: soft and compressible He maintains functional motion and strength of the shoulders Assessment: No diagnosis found. Plan/Medical Decision Making:The nature of the problem and all indicated treatment options available were discussed in detail with the patient. Test(s)/Imaging/Referral(s): None 2. Intervention: CSI today 3. Follow-up: As needed for injection Large Joint Arthro/Inj: R subacromial bursa Informed Consent Consent Obtained: Verbal [place] Protocol SIGN IN TIME OUT 02/13/2023 9:19 AM The procedure site was prepped in the usual sterile fashion. Site: R subacromial bursa Medications: 40 mg triamcinolone acetonide 40 mg/mL Anesthetics: 4 mL lidocaine (PF) 10 mg/mL (1 %) Outcome: Tolerated well, no immediate complications Post-injection instructions were reviewed with the patient and the patient voiced understanding of these instructions. All of Chasity Ruiz questions were answered today. He expressed a clear understanding of our discussion and is in agreement with the outlined treatment plan Elvira Garrison MD CC: [facility] 09-05-2022 History of Presen t illness Narrative Associated Order(s): Large Joint Arthro/Inj: R subacromial bursa Post-Procedure Diagnose(s): Rotator cuff tear arthropathy of right shoulder FOLLOW UP APPOINTMENT Chief Complaint:/Reason for Visit: Established patient; Scheduled follow up appointment for new or existing problem and/or post-surgical evaluation History of Present Illness: Chasity Ruiz follows up today for his right shoulder. Last injection was in January which helped up until 3 weeks ago. He has no new injuries or complaints. ROS: Constitutional: patient denies any recent fever or significant change in weight Cardiovascular: patient denies any chest pain at rest Respiratory: patient denies any shortness of breath or cough Gastrointestinal: patient denies any current abdominal discomfort Integumentary: patient denies any recent skin changes Musculoskeletal: as noted in the HPI Neurologic: as noted in the HPI Endocrine: patient denies a current diagnosis of diabetes Hematologic/Lymphatic: patient denies any easily bleeding, any recent infection and denies any recent observable lymph node enlargement Psychologic: negative for any recent depression or anxiety issues PAST MEDICAL HISTORY Diagnosis Date Hypertension Tuberculosis Current Outpatient Medications: psyllium seed, with dextrose, (FIBER ORAL) hydroCHLOROthiazide (HYDRODIURIL, ESIDRIX) 25 mg tablet pantoprazole DR (PROTONIX) 40 mg tablet simvastatin (ZOCOR) 40 mg tablet COQ10, UBIQUINOL, ORAL losartan (COZAAR) 100 mg tablet multivitamin ORAL tablet Aspirin 81 mg ORAL Tab Problem List: reviewed and updated. Physical Exam: Constitutional: No acute distress, pleasant Resp: Non-labored breathing Vascular: No cyanosis Skin: No rashes noted Focused Musculoskeletal exam: General: Ambulates well; no other joint abnormalities noted. Motor: 5/5 IO, FPL, OP, hand change release manager, biceps, triceps, deltoid Sensory: SILT ulnar/median/radial distributions bilat (C1-T1 intact) ROM: intact in all joints. Pulses: 2+ radial, ulnar; hands warm bilat, <2sec CR Compartments: soft and compressible He maintains functional motion. Assessment: (M75.101, M12.811) Rotator cuff tear arthropathy of right shoulder (primary encounter diagnosis) Plan/Medical Decision Making:The nature of the problem and all indicated treatment options available were discussed in detail with the patient. Test(s)/Imaging/Referral(s): None 2. Intervention: CSI today 3. Follow-up: As needed for injection Large Joint Arthro/Inj: R subacromial bursa Informed Consent Consent Obtained: Verbal [place] Protocol A moment to CARE was completed. SIGN IN Personnel directly involved with the procedure wore the appropriate PPE. Special Equipment: N/A Patient/Surrogate Stated/Verified: Date of , Patient name, Intended procedure and Relevant allergies TIME OUT Intended patient and procedure match the source document(s). Consent documented and matches the intended procedure. No relevant labs, photos, and/or imaging studies were applicable for review. Correct side/site marked and visible. Medications required for procedure verified. No fire risk assessment and interventions applicable. No implant(s) inserted. 09/05/2022 9:37 AM The procedure site was prepped in the usual sterile fashion. Site: R subacromial bursa Aspirate: 0 mL Medications: 40 mg triamcinolone acetonide 40 mg/mL Anesthetics: 4 mL lidocaine (PF) 10 mg/mL (1 %) Outcome: Tolerated well, no immediate complications Post-injection instructions were reviewed with the patient and the patient voiced understanding of these instructions. SIGN OUT No instruments, equipment or retained foreign bodies applicable. No images are attached to the encounter. SIGNATURE: Elvira Garrison MD PATIENT NAME: Chasity Ruiz DATE: September 05, 2022 TIME: 9:37 AM PAGER/CONTACT #: All of Chasity Ruiz questions were answered today. He expressed a clear understanding of our discussion and is in agreement with the outlined treatment plan Elvira Garrison MD CC: documented in this encounter [facility] 03-09-2022 Nurse Note AMBULATORY PATIENT EDUCATION NOTE TOPIC: GI PROCEDURES: Esophagogastroduodenoscopy(EGD) for control of bleeding,dilation(any means),imaging,tube placement READINESS TO LEARN INSTRUCTION PROVIDED TO: Patient and family member COGNITIVE ABILITY: Alert and oriented PTED MOTIVATION TO LEARN: Eager FAMILY SUPPORT: High - Very involved in pt care IPATIENT LEARNS BEST BY: Individual Instruction Written Instruction - Hand-outs Verbal Instruction FACTORS AFFECTING LEARNING: None PHYSICAL LIMITATIONS AFFECTING LEARNING: None LEARNING RESPONSE METHOD OF INSTRUCTION: Individual instruction PATIENT / FAMILY RESPONSE: Verbalizes understanding of: WORSENING CONDITION-Signs and symptoms of a worsening condition that warrant a call to the physician FOLLOW-UP PLAN: Complete - No need for follow-up SUPPLEMENTAL MATERIAL: Procedure Discharge Instructions REFERRAL (RECOMMENDATION): None PRE OP LEARNING ASSESSMENT PROCEDURE/SURGERY: GI PROCEDURES: EGD READINESS TO LEARN COGNITIVE ABILITY: Alert and oriented MOTIVATION TO LEARN: Interested FAMILY SUPPORT: None - Unavailable/disinterested PATIENT LEARNS BEST BY: Individual Instruction FACTORS AFFECTING LEARNING: None PHYSICAL LIMITATIONS AFFECTING LEARNING: None Electronically Signed By: Triny Hengesbach, RN In Department: GASTROENTEROLOGY documented in this encounter [facility] 03-02-2022 Miscellaneous Notes Attempted to reach the patient at the contact number that they provided [phone] (home) . Unable to speak with patient so without identifying the patient the following information was left on their voice mail: Date of procedure, location and report time Prep instructions A message was left informing the patient/patient office services representative they must have a responsible adult accompany them to their procedure; and remain in the endoscopy area until they are discharged. Failure to have a responsible adult accompany the patient to their procedure appointment prevents the use of sedation or anesthesia for their procedure; and can result in cancellation of the procedure NPO instructions were reviewed. Clear liquids the day before the procedure, stop all liquids 4 hours before the procedure Instructions to contact their primary care provider regarding their medications and which medications to stop in preparation for their procedure Instructions to completely read and follow the written instructions that they recieved regarding their procedure. Number to call with questions or concerns [phone] Sully Lilly MA documented in this encounter [facility] 02-28-2022 History of Presen t illness Narrative NEW VIRTUAL VISIT I had a virtual visit with Mr. Ruiz today for dysphagia HISTORY: 71 yr old male with dysphagia for more than a decade. had multiple dilations in the past Last one showed peptic stricture; s/p dilation with CRE balloon to 15 mm in 03/2020 He takes Pantoprazole He denies any GERD Careful with eating chews well followed by a drink of water Has food impactions may be a couple of times a week PAST MEDICAL HISTORY Diagnosis Date Hypertension Tuberculosis No past surgical history on file. No family history on file. Social History Tobacco Use Smoking status: Never Smokeless tobacco: Never Substance Use Topics Alcohol use: No Drug use: No Current Outpatient Medications Medication Sig Dispense Refill psyllium seed, with dextrose, (FIBER ORAL) Take by mouth once daily. hydroCHLOROthiazide (HYDRODIURIL, ESIDRIX) 25 mg tablet Take 25 mg by mouth once daily. pantoprazole DR (PROTONIX) 40 mg tablet Take 40 mg by mouth once daily. simvastatin (ZOCOR) 40 mg tablet Take 40 mg by mouth daily at bedtime. COQ10, UBIQUINOL, ORAL Take 200 mg by mouth once daily. losartan (COZAAR) 100 mg tablet Take 100 mg by mouth once daily. multivitamin ORAL tablet Take 1 tablet by mouth once daily. Aspirin 81 mg ORAL Tab Take 81 mg by mouth. No current facility-administered medications for this visit. ALLERGIES No Known Allergies REVIEW OF SYSTEMS: PAIN ASSESSMENT: Negative for pain, history of chronic pain, or current treatment for a chronic pain condition. GENERAL: No weight loss, malaise or fevers RESPIRATORY: Negative for cough, hemoptysis, wheezing, COPD, dyspnea or shortness of breath CARDIOVASCULAR: Negative for chest pain, leg swelling, hypertension, CHF or palpitations GI: as above MUSCULOSKELETAL: Negative for joint pain or swelling, back pain or muscle pain SKIN: Negative for lesions, rash, and itching ENDOCRINE: Negative for cold or heat intolerance, polyuria, polydipsia and goiter NEURO: No history of headaches, syncope, paralysis, seizures or tremors PHYSICAL FINDINGS OF NOTE: General - Normal, healthy, cooperative, in no acute distress Able to interact verbally by video conference Psych - ORIENTATION: normal to time place, person and situation Mood/Affect: AFFECT AND MOOD: Normal Head/Neuro - Normal size and shape Facial appearance normal Pulmonary - respiratory effort normal Cardiovascular - patient describes extremities normal, warm, no cyanosis,no clubbing, and no edema Skin - abnormal lesions not visualized Motor - patient seen sitting with Normal appearing strength and coordination REVIEWED ITEMS Prior work up ASSESSMENT AND PLAN Dysphagia- suspect from peptic stricture EGD with dilation I HAVE offered the patient an outpatient appointment for further care at [facility]. I spent a total of 25 minutes on the date of the service which included preparing to see the patient, [id number] patient care, completing clinical documentation, obtaining and/or reviewing separately obtained history, performing a medically appropriate examination, counseling and educating the patient/family/caregiver, ordering medications, tests, or procedures, communicating with other HCPs (not separately reported), independently interpreting results (not separately reported), communicating results to the patient/family/caregiver, and care coordination (not separately reported). Nancy Maldonado MD Answers submitted by the patient for this visit: Review of Systems Gastroenterology (Submitted on 02/21/2022) Fever: No Chills: No Night Sweats: No Unitentional Weight Change: No A Cough: No Difficulty Breathing: No Chest Pain: No Belly pain: No A feeling of fullness or have belly pain after eating: No Food getting stuck in your throat or chest after eating: Yes Nausea - that is, a feeling like you could vomit: No Regurgitation - that is, food or liquid coming back up into your throat or mouth without vomiting, or feel burning behind your breast bone: Yes Loss of appetite: Yes To throw up or vomit: Yes Blood in your stools: No Black tarry stools: No Loose or watery stools: No The feeling like you need to empty your bowels right away - that is, feel as if you would have an accident: No Bowel incontinence - that is, have an accident because you cannot make it to the bathroom in time: No Problems with straining while having bowel movements , hard or lumpy stools, or feel unfinished (that you have not passed all your stool): No Pain in rectum or anus during bowel movements: No Problems with jaundice - that is, yellow discoloration of your skin or eyes, now or in the past: No Problems with having to flush the toilet more than two times due to oily stool, or see stool floating with oil: No documented in this encounter [facility] 01-24-2022 History of Presen t illness Narrative Associated Order(s): Large Joint Arthro/Inj: R subacromial bursa Post-Procedure Diagnose(s): Rotator cuff tear arthropathy of right shoulder FOLLOW UP APPOINTMENT Chief Complaint:/Reason for Visit: Established patient; Scheduled follow up appointment for new or existing problem and/or post-surgical evaluation History of Present Illness: Chasity Ruiz follows up today for his right shoulder. He was last seen on August 02 and received a right shoulder subacromial corticosteroid injection. He had good relief up until recently. He has had a recurrence of pain. 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 Very physically active. ROS: Constitutional: patient denies any recent fever or significant change in weight Cardiovascular: patient denies any chest pain at rest Respiratory: patient denies any shortness of breath or cough Gastrointestinal: patient denies any current abdominal discomfort Integumentary: patient denies any recent skin changes Musculoskeletal: as noted in the HPI Neurologic: as noted in the HPI Endocrine: patient denies a current diagnosis of diabetes Hematologic/Lymphatic: patient denies any easily bleeding, any recent infection and denies any recent observable lymph node enlargement Psychologic: negative for any recent depression or anxiety issues PAST MEDICAL HISTORY Diagnosis Date Hypertension Tuberculosis Current Outpatient Medications: psyllium seed, with dextrose, (FIBER ORAL) hydroCHLOROthiazide (HYDRODIURIL, ESIDRIX) [address] (PROTONIX) 40 mg tablet simvastatin (ZOCOR) 40 mg tablet COQ10, UBIQUINOL, ORAL losartan (COZAAR) 100 mg tablet multivitamin ORAL tablet Aspirin 81 mg ORAL Tab Problem List: reviewed and updated. Physical Exam: Constitutional: No acute distress, pleasant Resp: Non-labored breathing Vascular: No cyanosis Skin: No rashes noted Focused Musculoskeletal exam: General: Ambulates well; no other joint abnormalities noted. Motor: 5/5 IO, FPL, OP, hand change release manager, biceps, triceps, deltoid Sensory: SILT ulnar/median/radial distributions bilat (C1-T1 intact) ROM: intact in all joints. Pulses: 2+ radial, ulnar; hands warm bilat, <2sec CR Compartments: soft and compressible Exam today he has atrophy of the right supraspinatus infraspinatus muscle bellies. Well compensated shoulder. Assessment: (M75.101, M12.811) Rotator cuff tear arthropathy of right shoulder (primary encounter diagnosis) Plan/Medical Decision Making:The nature of the problem and all indicated treatment options available were discussed in detail with the patient. Test(s)/Imaging/Referral(s): None 2. Intervention: Injection today 3. Follow-up: As needed Large Joint Arthro/Inj: R subacromial bursa Informed Consent Consent Obtained: Verbal [place] Protocol A moment to CARE was completed. SIGN IN Personnel directly involved with the procedure wore the appropriate PPE. Special Equipment: N/A Patient/Surrogate Stated/Verified: Date of , Patient name, Intended procedure and Relevant allergies TIME OUT Intended patient and procedure match the source document(s). Consent documented and matches the intended procedure. No relevant labs, photos, and/or imaging studies were applicable for review. Correct side/site marked and visible. Medications required for procedure verified. No fire risk assessment and interventions applicable. No implant(s) inserted. 01/24/2022 10:19 AM The procedure site was prepped in the usual sterile fashion. Site: R subacromial bursa Aspirate: 0 mL Medications: 40 mg triamcinolone acetonide 40 mg/mL Anesthetics: 4 mL lidocaine (PF) 10 mg/mL (1 %) Outcome: Tolerated well, no immediate complications Post-injection instructions were reviewed with the patient and the patient voiced understanding of these instructions. SIGN OUT No specimen collected. No instruments, equipment or retained foreign bodies applicable. Post-procedure follow-up management communicated and Plan of Care Visit completed when applicable No images are attached to the encounter. SIGNATURE: Elvira Garrison MD PATIENT NAME: Chasity Ruiz DATE: January 24, 2022 TIME: 10:19 AM PAGER/CONTACT #: All of Chasity Ruiz questions were answered today. He expressed a clear understanding of our discussion and is in agreement with the outlined treatment plan Elvira Garrison MD CC: documented in this encounter [facility] 08-02-2021 History of Presen t illness Narrative Associated Order(s): Large Joint Arthro/Inj: R subacromial bursa Post-Procedure Diagnose(s): Rotator cuff tear arthropathy of right shoulder FOLLOW UP APPOINTMENT Chief Complaint:/Reason for Visit: Established patient; Scheduled follow up appointment for new or existing problem and/or post-surgical evaluation History of Present Illness: Chasity Ruiz follows up today for his right shoulder. He has rotator cuff tear arthropathy. Was last seen in December and had a cortisone injection which lasted about 4 months. Has had a recurrence of pain at a level of 3/10 and would like another injection today. ROS: Constitutional: patient denies any recent fever or significant change in weight Cardiovascular: patient denies any chest pain at rest Respiratory: patient denies any shortness of breath or cough Gastrointestinal: patient denies any current abdominal discomfort Integumentary: patient denies any recent skin changes Musculoskeletal: as noted in the HPI Neurologic: as noted in the HPI Endocrine: patient denies a current diagnosis of diabetes Hematologic/Lymphatic: patient denies any easily bleeding, any recent infection and denies any recent observable lymph node enlargement Psychologic: negative for any recent depression or anxiety issues PAST MEDICAL HISTORY Diagnosis Date Hypertension Tuberculosis Current Outpatient Medications: psyllium seed, with dextrose, (FIBER ORAL) hydroCHLOROthiazide (HYDRODIURIL, ESIDRIX) [address] (PROTONIX) 40 mg tablet simvastatin (ZOCOR) 40 mg tablet COQ10, UBIQUINOL, ORAL losartan (COZAAR) 100 mg tablet multivitamin ORAL tablet Aspirin 81 mg ORAL Tab Problem List: reviewed and updated. Physical Exam: Constitutional: No acute distress, pleasant Resp: Non-labored breathing Vascular: No cyanosis Skin: No rashes noted Focused Musculoskeletal exam: General: Ambulates well; no other joint abnormalities noted. Motor: 5/5 IO, FPL, OP, hand change release manager, biceps, triceps, deltoid Sensory: SILT ulnar/median/radial distributions bilat (C1-T1 intact) ROM: intact in all joints. Pulses: 2+ radial, ulnar; hands warm bilat, <2sec CR Compartments: soft and compressible He is well compensated with good active motion. No lag signs. Assessment: (M75.101, M12.811) Rotator cuff tear arthropathy of right shoulder (primary encounter diagnosis) Plan/Medical Decision Making:The nature of the problem and all indicated treatment options available were discussed in detail with the patient. We have agreed to the following treatment plan: 1. Medication: None. 2. Test(s)/Imaging/Referral(s):None . 3. Intervention: Large Joint Arthro/Inj: R subacromial bursa Informed Consent Consent Obtained: Verbal [place] Protocol A moment to CARE was completed. SIGN IN Personnel directly involved with the procedure wore the appropriate PPE. Special Equipment: N/A Patient/Surrogate Stated/Verified: Patient name, Date of , Relevant allergies and Intended procedure TIME OUT Intended patient and procedure match the source document(s). Consent documented and matches the intended procedure. No relevant labs, photos, and/or imaging studies were applicable for review. Correct side/site marked and visible. Medications required for procedure verified. No fire risk assessment and interventions applicable. No implant(s) inserted. 08/02/2021 9:46 AM The procedure site was prepped in the usual sterile fashion. Site: R subacromial bursa Aspirate: 0 mL Medications: 40 mg triamcinolone acetonide 40 mg/mL Anesthetics: 4 mL lidocaine (PF) 10 mg/mL (1 %) Outcome: Tolerated well, no immediate complications Post-injection instructions were reviewed with the patient and the patient voiced understanding of these instructions. SIGN OUT No specimen collected. No instruments, equipment or retained foreign bodies applicable. Post-procedure follow-up management communicated and Plan of Care Visit completed when applicable No images are attached to the encounter. SIGNATURE: Elvira Garrison MD PATIENT NAME: Chasity Ruiz DATE: August 02, 2021 TIME: 9:46 AM PAGER/CONTACT #: 4. Follow-up: prn All of Chasity Ruiz questions were answered today. He expressed a clear understanding of our discussion and is in agreement with the outlined treatment plan Elvira Garrison MD CC:Self documented in this encounter [facility] 08-02-2021 History of Presen t illness Narrative Radiology Service Progress Note PATIENT NAME: Chasity Ruiz DATE OF SERVICE: August 02, 2021 TIME: 9:07 AM PATIENT IDENTITY VERIFICATION COMPLETED USING TWO (2) IDENTIFIERS: Name and Date of confirmed by patient verbally. FALL SCREENING: Has the patient had 2 falls in the last year or 1 fall with injury or currently using an Ambulatory Assistive Device (Walker, Cane, Wheelchair, Crutches, etc.)? No PATIENT GENDER DATA: Male PATIENT RELEVANT IMPLANT DATA REVIEWED: Not Applicable RADIOLOGY DEPARTMENT: General X-ray: Exam(s) Completed: Upper Extremity X-Ray(s): Shoulder, AP / TRUE AP / AXILLARY right PERIPHERAL IV DATA: Not applicable SIGNED BY: RT Sylwia(R) August 02, 2021 9:07 AM documented in this encounter [facility] 07-13-2020 History of Presen t illness Narrative Radiology Service Progress Note PATIENT NAME: Chasity Ruiz DATE OF SERVICE: July 13, 2020 TIME: 11:31 AM PATIENT IDENTITY VERIFICATION COMPLETED USING TWO (2) IDENTIFIERS: Name and Date of confirmed by patient verbally. FALL SCREENING: Has the patient had 2 falls in the last year or 1 fall with injury or currently using an Ambulatory Assistive Device (Walker, Cane, Wheelchair, Crutches, etc.)? No PATIENT GENDER DATA: Male PATIENT RELEVANT IMPLANT DATA REVIEWED: Not Applicable RADIOLOGY DEPARTMENT: General X-ray: Exam(s) Completed: Upper Extremity X-Ray(s): Shoulder, AP / TRUE AP / AXILLARY right PERIPHERAL IV DATA: Not applicable SIGNED BY: Enrique Ngo July 13, 2020 11:31 AM documented in this encounter [facility] Evaluation note Diagnosis Rotator cuff tear arthropathy of right shoulder- Primary Traumatic arthropathy, shoulder region [facility] Rotator cuff tear arthropathy of right shoulder- Primary Traumatic arthropathy, [facility] Other [facility]phagia- [facility] Other [facility]phagia [facility] Diagnosis Rotator cuff tear arthropathy of right shoulder- Primary Traumatic arthropathy, shoulder region [facility] Diagnosis Esophageal dysphagia- Primary Dysphagia, pharyngoesophageal phase Gastroesophageal reflux disease, unspecified whether esophagitis present [facility] Diagnosis Rotator cuff tear arthropathy of right shoulder- Primary Traumatic arthropathy, shoulder [facility] Diagnosis Esophageal dysphagia Dysphagia, pharyngoesophageal phase [facility] Diagnosis Rotator cuff tear arthropathy of right shoulder- Primary Traumatic arthropathy, shoulder region [facility] Pain Generalized pain [facility] Pain Generalized pain documented in this encounter [facility] for referral (narrative)* Outpatient Procedure (Routine) - Authorized Specialty Diagnoses / Procedures Referred By Tien shaikh Referred To Contact [facility] [place] Diagnoses Other dysphagia Procedures EGD - THERAPEUTIC, EUS, OR TUBE INTERVENTIONS EGD DILATION GASTRIC/[place] [id number] [place] [phone] [place] [id number] Referral ID Status Reason Start Date Expiration Date Visits Requested Visits Authorized [id number] Authorized Auto-Generat ed Referral 02/28/2022 02/28/[address] [facility] for referral (narrative)* Outpatient Procedure (Routine) - Closed Specialty Diagnoses / Procedures Referred By Tien shaikh Referred To Contact [facility] [place] Diagnoses Other dysphagia Procedures EGD - THERAPEUTIC, EUS, OR TUBE INTERVENTIONS EGD DILATION GASTRIC/[place] [id number] [place] [phone] [place] [id number] Referral ID Status Reason Start Date Expiration Date V isits Requested Visits Authorized [id number] Closed Auto-Generate d Referral 02/28/2022 02/28/[address] [facility] for referral (narrative)* Outpatient Procedure (Routine) - Pending Review Specialty Diagnoses / Procedures Referred By Tien shaikh Referred To [facility] [place] Diagnoses Esophageal dysphagia Procedures EGD - THERAPEUTIC, EUS, OR TUBE INTERVENTIONS EGD BALLOON DILATION ESOPHAGUS <30 [place] [id number] [place] [phone] [place] [id number] Referral ID Status Reason Start Date Expiration Date Visits Requested Visits Authorized [id number] Pending Review Auto-Generat ed Referral 05/22/2023 05/21/[address] [facility] for referral (narrative)* Outpatient Procedure (Routine) - Closed Specialty Diagnoses / Procedures Referred By Contac t Referred To Contact [facility] Diagnoses Esophageal dysphagia Procedures EGD - THERAPEUTIC, EUS, OR TUBE INTERVENTIONS EGD BALLOON DILATION ESOPHAGUS <30 [place] [address] [place] [address] [facility] Disease [place] [id number] Referral ID Status Reason Start Date Expiration Date V isits Requested Visits Authorized [id number] Closed Auto-Generate d Referral 05/22/2023 05/21/[address] [facility] for referral (narrative)* Diagnostic Procedure Only (Routine) - Closed Specialty Diagnoses / Procedures Referred By Contac t Referred To Contact XR IMAGING Diagnoses Pain Procedures XR SHOULDER GENERAL 3V OR MORE AP/TRUE AP/OTHER RIGHT RADEX SHOULDER COMPLETE MINIMUM 2 [place] [address] [place] [address] Xr Imaging [id number] Referral ID Status Reason Start Date Expiration Date V isits Requested Visits Authorized [id number] Closed Auto-Generate d Referral 2021 08/21/[address] [facility] for visit Narrative* Outpatient Procedure (Routine) - Closed Specialty Diagnoses / Procedures Referred By Contac t Referred To Contact [facility] Diagnoses Other dysphagia Procedures EGD - THERAPEUTIC, EUS, OR TUBE INTERVENTIONS EGD DILATION GASTRIC/[place] [address] [place] [address] [place] [id number] Referral ID Status Reason Start Date Expiration Date V isits Requested Visits Authorized [id number] Closed Auto-Generate d Referral 02/28/2022 02/28/[address] [facility] for visit Narrative* Outpatient Procedure (Routine) - Closed Specialty Diagnoses / Procedures Referred By Contac t Referred To Contact [facility] Diagnoses Esophageal dysphagia Procedures EGD - THERAPEUTIC, EUS, OR TUBE INTERVENTIONS EGD BALLOON DILATION ESOPHAGUS <30 [place] [address] [place] [address] [facility] [place] [address] [place] [address] Referral ID Status Reason Start Date Expiration Date V isits Requested Visits Authorized [id number] Closed Auto-Generate d Referral 05/22/2023 05/21/2024 1 1 [facility] Summary Purpose Family History No Family History Records FoundNo Family History Records Found Advance Directives No Advanced Directives Records FoundNo Advanced Directives Records Found Medications Administered Section Inactive Administered Medications - up to 3 most recent administrations Medication Order MAR Action Action Date Dose Rate Site lidocaine (PF) 10 mg/mL (1 %) 4 mL injection (XYLOCAINE) 4 mL, Injection - FOR ORTHO USE ONLY, ONE TIME INJECTION, 1 dose, Starting on Sun08/02/21 at 0946, Until Sun08/02/21 at 0946 Given 08/02/2021 9:46 AM EDT 4 mL triamcinolone acetonide 40 mg injection (KeNALog 40) 40 mg, Injection - FOR ORTHO USE ONLY, ONE TIME INJECTION, 1 dose, Starting on Sun08/02/21 at 0946, Until Sun08/02/21 at 0946 Given 08/02/2021 9:46 AM EDT 40 mg Inactive Administered Medications - up to 3 most recent administrations Medication Order MAR Action Action Date Dose Rate Site lidocaine (PF) 10 mg/mL (1 %) 4 mL injection (XYLOCAINE) 4 mL, Injection - FOR ORTHO USE ONLY, ONE TIME INJECTION, 1 dose, Starting on Sun01/24/22 at 1019, Until Sun01/24/22 at 1019 Given 01/24/2022 10:19 AM EST 4 mL Shoulder, Right triamcinolone acetonide 40 mg injection (KeNALog 40) 40 mg, Injection - FOR ORTHO USE ONLY, ONE TIME INJECTION, 1 dose, Starting on Sun01/24/22 at 1019, Until Sun01/24/22 at 1019 Given 01/24/2022 10:19 AM EST 40 mg Shoulder, Right Inactive Administered Medications - up to 3 most recent administrations Medication Order MAR Action Action Date Dose Rate Site meperidine (PF) injection (DEMEROL) X (OR/PROCEDURE) PRN, Starting on Chelsey 03/09/22 at 1010, Until Chelsey 03/09/22 at 1010, Intraprocedure Given 03/09/2022 10:10 AM EST 50 mg meperidine (PF) injection (DEMEROL) X (OR/PROCEDURE) PRN, Starting on Chelsey 03/09/22 at 1017, Until [place]sey 03/09/22 at 1017, Intraprocedure Given 03/09/2022 10:17 AM EST 25 mg midazolam (PF) injection (VERSED) INTRAVENOUS, X (OR/PROCEDURE) PRN, Starting on Chelsey 03/09/22 at 1010, Until Chelsey 03/09/22 at 1017, Intraprocedure Given 03/09/2022 10:17 AM EST 1 mg Given 03/09/2022 10:10 AM EST 3 mg ondansetron (PF) injection (ZOFRAN) INTRAVENOUS, X (OR/PROCEDURE) PRN, Starting on Chelsey 03/09/22 at 1011, Until Chelsey 03/09/22 at 1011, Intraprocedure Given 03/09/2022 10:11 AM EST 4 mg Inactive Administered Medications - up to 3 most recent administrations Medication Order MAR Action Action Date Dose Rate Site lidocaine (PF) 10 mg/mL (1 %) 4 mL injection (XYLOCAINE) 4 mL, Injection - FOR ORTHO USE ONLY, ONE TIME INJECTION, 1 dose, Starting on Sun09/05/22 at 0937, Until Sun09/05/22 at 0937 Given 09/05/2022 9:37 AM EDT 4 mL Shoulder, Right triamcinolone acetonide 40 mg injection (KeNALog 40) 40 mg, Injection - FOR ORTHO USE ONLY, ONE TIME INJECTION, 1 dose, Starting on Sun09/05/22 at 0937, Until Sun09/05/22 at 0937 Given 09/05/2022 9:37 AM EDT 40 mg Shoulder, Right Additional Source Comments (unrecognized sect ion and content) No Status Records FoundNo Status Records Found INFORMATION SOURCE (unrecogn ized section and content) DATE CREATED AUTHOR 11/17/2020 [facility] DATE CREATED AUTHOR AUTHOR'S ANTONIETA ATION 09/19/2023 [facility] Source Comments (unrecognize d section and content) In the event this informatio n is protected by the Federal Confidentiality of Alcohol and Drug Abuse Patient Records regulations: The Federal rules restrict any use of the information to criminally investigate or prosecute any alcohol or drug abuse patient.[facility] the event this information is protected by the Federal Confidentiality of Alcohol and Drug Abuse Patient Records regulations: The Federal rules restrict any use of the information to criminally investigate or prosecute any alcohol or drug abuse patient.[facility] the event this information is protected by the Federal Confidentiality of Alcohol and Drug Abuse Patient Records regulations: The Federal rules restrict any use of the information to criminally investigate or prosecute any alcohol or drug abuse patient.[facility] the event this information is protected by the Federal Confidentiality of Alcohol and Drug Abuse Patient Records regulations: The Federal rules restrict any use of the information to criminally investigate or prosecute any alcohol or drug abuse patient.[facility] the event this information is protected by the Federal Confidentiality of Alcohol and Drug Abuse Patient Records regulations: The Federal rules restrict any use of the information to criminally investigate or prosecute any alcohol or drug abuse patient.[facility] the event this information is protected by the Federal Confidentiality of Alcohol and Drug Abuse Patient Records regulations: The Federal rules restrict any use of the information to criminally investigate or prosecute any alcohol or drug abuse patient.[facility] the event this information is protected by the Federal Confidentiality of Alcohol and Drug Abuse Patient Records regulations: The Federal rules restrict any use of the information to criminally investigate or prosecute any alcohol or drug abuse patient.[facility] the event this information is protected by the Federal Confidentiality of Alcohol and Drug Abuse Patient Records regulations: The Federal rules restrict any use of the information to criminally investigate or prosecute any alcohol or drug abuse patient.[facility] the event this information is protected by the Federal Confidentiality of Alcohol and Drug Abuse Patient Records regulations: The Federal rules restrict any use of the information to criminally investigate or prosecute any alcohol or drug abuse patient.[facility] the event this information is protected by the Federal Confidentiality of Alcohol and Drug Abuse Patient Records regulations: The Federal rules restrict any use of the information to criminally investigate or prosecute any alcohol or drug abuse patient.[facility] the event this information is protected by the Federal Confidentiality of Alcohol and Drug Abuse Patient Records regulations: The Federal rules restrict any use of the information to criminally investigate or prosecute any alcohol or drug abuse patient.[facility] the event this information is protected by the Federal Confidentiality of Alcohol and Drug Abuse Patient Records regulations: The Federal rules restrict any use of the information to criminally investigate or prosecute any alcohol or drug abuse patient.[facility] Reason for Visit (unrecogniz ed section and content) Reason Comments Established Patient Reason Comments Recheck Reason Comments Appointment Education Of Patient/family LM for 3 Reason Comments Established Patient Pain Reason Comments Radio Gen RMP Specialty Diagnoses / Procedures Referred By Contac t Referred To Contact XR IMAGING Diagnoses Pain Procedures XR SHOULDER GENERAL 3V OR MORE AP/TRUE AP/OTHER RIGHT RADEX SHOULDER COMPLETE MINIMUM 2 [place] [address] [place] [address] Xr Imaging [place] [id number] Referral ID Status Reason Start Date Expiration Date V isits Requested Visits Authorized [id number] Closed Auto-Generate d Referral 2021 08/21/2022 1 1 Reason Comments Radio Gen RMP Care Teams (unrecognized sec tion and content) Director Search Relationship Specialty Start Date End Date [place] Sellers PCP - General Family Practice 03/08/10 Director Search Relationship Specialty Start Date End Date [place] Sellers PCP - General Family Medicine 03/08/10 Director Search Relationship Specialty Start Date End Date [place] Sellers PCP - General Family Medicine 03/08/10 Director Search Relationship Specialty Start Date End Date [place] Sellers PCP - General Family Medicine 03/08/10 Director Search Relationship Specialty Start Date End Date [place] Sellers [facility] 03/08/10 Director Search Relationship Specialty Start Date End Date [place] Sellers [facility] 03/08/10 Director Search Relationship Specialty Start Date End Date [place] Sellers DO [facility] 03/08/10 Director Search Relationship Specialty Start Date End Date [place] Sellers DO [facility] 03/08/10 Director Search Relationship Specialty Start Date End Date [place] Sellers DO [facility] 03/08/10 Director Search Relationship Specialty Start Date End Date [place] Sellers DO [facility] 03/08/10 Director Search Relationship Specialty Start Date End Date [place] Sellers DO [facility] 03/08/10 FOR RECORDS PERTAINING TO PATIENTS WHO ARE OR HAVE BEEN ENROLLED IN A CHEMICAL DEPENDENCY/SUBSTANCEABUSE PROGRAM, SOME INFORMATION MAY BE OMITTED. This clinical summary was aggregated from multiple sources. Caution should be exercised in using it in the provision of clinical care. This summary normalizes information from multiple sources, and as a consequence, information in this document may materially change the coding, format and clinical context of patient data. In addition, data may be omitted in some cases. CLINICAL DECISIONS SHOULD BE BASED ON THE PRIMARY CLINICAL RECORDS. [facility] provides no warranty or guarantee of the accuracy or completeness of information in this document.
== END 2023-12-24 08:33 | disposition home or self-care (01) ==
LOC: RAD 08:34
PROVIDERS: PCP Family Medicine; Visit Provider Family Medicine
DX: R05.9 Cough, unspecified (principal); M47.814 Spondylosis without myelopathy or radiculopathy, thoracic region
CPT/HCPCS: 71046